=== PATIENT | male | born 1990 | race Caucasian/White ===

== ENCOUNTER 2020-06-22 14:28 | Emergency (ER) | payer OTHER, SELFPAY ==
[2020-06-22 14:42] VITALS: BP 123/84; PULSE 63; RESP 20; TEMP 36.3; O2SAT 100
--- NOTE | 2020-06-22 14:54 | ED.MALEGU ---
HPI - Male Genitourinary General Chief complaint: Urogenital-Male Stated complaint: STD test Time Seen by Provider: 06/22/20 14:45 Source: patient and RN notes reviewed Mode of arrival: ambulatory Limitations: no limitations History of Present Illness HPI Narrative: 30-year-old male presents concern for possible STD exposure. Reports unprotected sex with a new partner. Reports red, slightly itchy skin on his penis. Denies penile discharge, dysuria. MD Complaint: possible STD exposure Related Data Allergies Allergy/AdvReac Type Severity Reaction Status Date / Time No Known Allergies Allergy Unverified 03/29/14 10:32 Review of Systems Review of Systems: Narrative: CONSTITUTIONAL: Denies malaise, chills, sweats, or fever. CARDIOVASCULAR: Denies chest pain, palpitations, or edema. RESPIRATORY: Denies cough or dyspnea. GASTROINTESTINAL: Denies abdominal pain, nausea, vomiting, diarrhea, bloody, or mucous stools. GENITOURINARY: Denies dysuria or hematuria. SKIN: Reports red itchy skin on his penis MUSCULOSKELETAL: Denies myalgia. All systems reviewed & are unremarkable except as noted in HPI and below PMFSH Comments At time of signature, agree with nursing past medical, surgical, social and family history. There is no relevant family history pertinent to the presenting complaint Exam Narrative: Exam Narrative: GENERAL: Well-appearing, well-nourished, and in no acute distress. HEAD: Normocephalic, atraumatic. EYES: PERRLA, conjunctivae clear ENT: Mucous membranes moist. NECK: Supple. CHEST: No respiratory distress. Speaks in full sentences. HEART: Regular rate and rhythm. SKIN: Warm, dry. 3 cm in diameter patch of mildly excoriated, pink skin on the shaft of the penis NEURO: Alert and oriented x3. PSYCH: Normal mood and affect : Male genitals images: 1. Patch of pink mildly excoriated skin Course Course Emergency Course: Patient is aware of diagnosis, understands and agrees to treatment plan. Anticipatory guidance given. Patient agrees to follow-up as directed and is aware of reasons to seek care at the emergency department. Portions of this record may have been created with voice recognition software Vital Signs Vital signs: Vital Signs Temperature 97.4 F L 06/22/20 14:42 Pulse Rate 63 06/22/20 14:42 Respiratory Rate 20 06/22/20 14:42 Blood Pressure 123/84 06/22/20 14:42 Pulse Oximetry 100 06/22/20 14:42 Temperature 97.4 F L 06/22/20 14:42 Pulse Rate 63 06/22/20 14:42 Respiratory Rate 20 06/22/20 14:42 Blood Pressure 123/84 06/22/20 14:42 Pulse Oximetry 100 06/22/20 14:42 Reviewed. Pt has been instructed to follow up with his primary care provider within the next week regarding his elevated blood pressure today. MDM - Male Genitourinary MDM Narrative Medical decision making narrative: Exam findings show no acute concerns or changes; patient is non-toxic appearing and is in no distress. Patient is appropriate for outpatient treatment and follow-up. Differential Diagnosis Differential diagnosis: Likely urinary tract infection, urethritis, genital herpes simplex and other (STD) Critical Care Time Critical Care Time Critical Care Time: No Discharge Plan Discharge Clinical Impression: Possible exposure to STD, Rash Patient Disposition: Home, Self-Care Condition: Stable Instructions: Antibiotic Form, Sexually Transmitted Diseases (ED) Additional Instructions: You have been tested and treated for potential Gonorrhea and Chlamydia today. A prescription has been called into her pharmacy for treatment for trichomoniasis. You must pick this up and take it in order to be considered treated for trichomoniasis. You will receive a phone call in 2-3 days with the results of today's testing. It is very important that you avoid unprotected intercourse for 7 days and until your partner(s) have been treated. Please encourage your partner(s) to seek testing and treatm
[2020-06-22] MEDS: LIDOCAINE HCL 1% LOCAL INJ 20 ML VIAL IM (15:03)
[2020-06-22] MEDS: AZITHROMYCIN 250 MG TABLET 1000 MG PO (15:03)
[2020-06-22] MEDS: cefTRIAXone 250 MG VIAL IM (15:04)
== END 2020-06-22 15:30 | disposition home or self-care (01) ==
PROVIDERS: Emergency Provider Nurse Practitioner
DX: N48.89 Other specified disorders of penis (principal)
CPT/HCPCS: 87491; 87591; 87661; 96372; 99203; A9270; G0463; J0696

== ENCOUNTER 2020-11-20 16:00 | Emergency (ER) | payer OTHER, SELFPAY ==
[2020-11-20 16:03] VITALS: BP 130/85; PULSE 69; RESP 16; TEMP 36.2; O2SAT 98
[2020-11-20 16:10] VITALS: BP 130/85; PULSE 69; RESP 16; TEMP 36.2; O2SAT 98
--- NOTE | 2020-11-20 17:01 | ED.MALEGU ---
HPI - Male Genitourinary General Chief complaint: Urogenital-Male Stated complaint: std Time Seen by Provider: 11/20/20 16:40 Source: patient and RN notes reviewed Mode of arrival: ambulatory Limitations: no limitations History of Present Illness HPI Narrative: Patient presents today requesting STD testing. His girlfriend told him yesterday that she was diagnosed with chlamydia. She has been treated. Patient denies any symptoms. States he has 1 female partner. He does not wear any condoms. After she told him she was positive for chlamydia, she did admit that she has been sexually active with other partners. MD Complaint: possible STD exposure Related Data Allergies Allergy/AdvReac Type Severity Reaction Status Date / Time acetaminophen [From Percocet] AdvReac Unknown Verified 11/20/20 16:09 oxycodone [From Percocet] AdvReac Unknown Verified 11/20/20 16:09 Review of Systems Review of Systems: Narrative: CONSTITUTIONAL: Denies body aches, fever, chills, or sweats. EYES: Denies visual changes, redness, or discharge. ENT: Denies rhinorrhea, congestion, sore throat, or otalgia. CARDIOVASCULAR: Denies chest pain, palpitations, or edema. RESPIRATORY: Denies cough or dyspnea. GASTROINTESTINAL: Denies abdominal pain, nausea, vomiting, or diarrhea. GENITOURINARY: Denies dysuria or hematuria. SKIN: Denies rash, itching, or wounds. MUSCULOSKELETAL: Denies back pain, joint pain, or myalgia. NEUROLOGIC: Denies headache, numbness, tingling, or weakness. PSYCH: Denies depression or anxiety. PMFSH Social History Social History Smoking status: Current every day smoker Tobacco type: cigarettes Gender identity (if verbalized by the patient): Male Comments At time of signature, I have reviewed and agree with nursing past medical, surgical, social and family history unless otherwise noted. Please see nursing chart for further information. There is no relevant family history pertinent to the presenting complaint Exam Narrative: Exam Narrative: GENERAL: Well-appearing, well-nourished, and in no acute distress. HEAD: Normocephalic, atraumatic. EYES: EOMI. No redness or drainage. Conjunctivae normal. ENT: Mucous membranes pink and moist. NECK: Normal AROM. CHEST: No respiratory distress. : deferred. MUSCULOSKELETAL: No bony tenderness. EXTREMITIES: Normal range of motion. No edema. SKIN: Warm, dry, no rash. Capillary refill normal. Normal skin turgor. NEURO: No focal deficits. Alert and oriented x3. Gait steady. PSYCH: Normal affect. No signs of depression or anxiety. Course Vital Signs Vital signs: Vital Signs Temperature 97.1 F L 11/20/20 16:03 Pulse Rate 69 11/20/20 16:03 Respiratory Rate 16 11/20/20 16:03 Blood Pressure 130/85 11/20/20 16:03 Pulse Oximetry 98 11/20/20 16:03 Temperature 97.1 F L 11/20/20 16:10 Pulse Rate 69 11/20/20 16:10 Respiratory Rate 16 11/20/20 16:10 Blood Pressure 130/85 11/20/20 16:10 Pulse Oximetry 98 11/20/20 16:10 Reviewed. Pt has been instructed to follow up with his PCP regarding his elevated blood pressure today. MDM - Male Genitourinary Differential Diagnosis Differential diagnosis: Likely urinary tract infection, urethritis and other (Gonorrhea, chlamydia, trichomonas) Lab Data Labs: Urine Characteristics Clear Critical Care Time Critical Care Time Critical Care Time: No Discharge Plan Discharge Clinical Impression: Concern about sexually transmitted disease in male without diagnosis Patient Disposition: Home, Self-Care Condition: Stable Instructions: Antibiotic Form, Chlamydia (ED), Gonorrhea (ED), Trichomoniasis (ED) Additional Instructions: You have been tested and treated for gonorrhea, chlamydia, and trichomonas. You will be notified by telephone of these test results. You need to abstain from
[2020-11-20] MEDS: AZITHROMYCIN 250 MG TABLET 1000 MG PO (17:10)
[2020-11-20] MEDS: LIDOCAINE HCL 1% LOCAL INJ 20 ML VIAL IM (17:12)
[2020-11-20] MEDS: cefTRIAXone 250 MG VIAL 500 MG IM (17:12)
== END 2020-11-20 17:28 | disposition home or self-care (01) ==
PROVIDERS: Emergency Provider Nurse Practitioner
DX: Z20.822 Contact with and (suspected) exposure to COVID-19 (principal); F17.210 Nicotine dependence, cigarettes, uncomplicated
CPT/HCPCS: 87491; 87591; 87661; 96372; 99213; A9270; G0463; J0696

== ENCOUNTER 2021-03-08 09:03 | Emergency (ER) | payer OTHER, SELFPAY ==
[2021-03-08 09:24] VITALS: BP 129/73; RESP 49; TEMP 36.6; O2SAT 100
--- NOTE | 2021-03-08 10:02 | ED.LOWEXIN ---
HPI - Extremity Injury (Lower) General Chief Complaint: Extremity Injury, Lower Stated Complaint: right leg pain and selling on back of knee Source: patient Mode of arrival: ambulatory Limitations: no limitations History of Present Illness HPI Narrative: Patient is a 30 year old male who presents complaining of right leg pain. He reports pain x 2 weeks. Patient reports that he stand all day from work. He denies injury. Reports pain increases with extension. He reports tenderness to posterior knee and states feels like a knot . He denies taking [id number] medications for pain he denies all other complaints at this time. complaint: other (Posterior knee pain) Related Data Home Medications Medication Instructions Recorded Confirmed No Home Medications 03/08/21 03/08/21 Allergies Allergy/AdvReac Type Severity Reaction Status Date / Time acetaminophen [From Percocet] AdvReac Rash Verified 03/08/21 09:50 oxycodone [From Percocet] AdvReac Rash Verified 03/08/21 09:50 Review of Systems Review of Systems: Narrative: CONSTITUTIONAL: Denies fever, chills, or sweats. EYES: Denies visual changes, redness, or discharge. ENT: Denies rhinorrhea, congestion, sore throat, or otalgia. CARDIOVASCULAR: Denies chest pain, palpitations, or edema. RESPIRATORY: Denies cough or dyspnea. GASTROINTESTINAL: Denies abdominal pain, nausea, vomiting, or diarrhea. GENITOURINARY: Denies dysuria or hematuria. SKIN: Denies rash or itching. MUSCULOSKELETAL: Right knee pain NEUROLOGIC: Denies headache, numbness, dizziness, or weakness. PSYCHIATRIC: Denies anxiety or depression. PMFSH Social History Social History Smoking status: Current every day smoker Tobacco type: cigarettes Gender identity (if verbalized by the patient): Male Comments At the time of signature, I have reviewed and agree with nursing past medical, surgical, social, and family history unless otherwise noted. Please see nursing chart for further information. There is no relevant family history pertinent to the presenting complaint. Exam Narrative: Exam Narrative: GENERAL: Well-appearing, well-nourished, and in no acute distress. HEAD: Normocephalic, atraumatic. EYES: EOMI. No redness or drainage. ENT: Mucous membranes pink and moist. CHEST: No respiratory distress. Clear to auscultation. HEART: Regular rate and rhythm EXTREMITIES: Normal range of motion. No edema. Tenderness with palpation to right posterior knee, area of edema noted, no warmth or erythema SKIN: Warm, dry, no rash. NEURO: No focal deficits. Alert and oriented x3. Gait steady. PSYCH: Normal affect. No signs of depression or anxiety. Course Vital Signs Vital signs: Vital Signs Temperature 36.6 C 03/08/21 09:24 Respiratory Rate 49 H 03/08/21 09:24 Blood Pressure 129/73 03/08/21 09:24 Pulse Oximetry 100 03/08/21 09:24 Temperature 36.6 C 03/08/21 09:24 Respiratory Rate 49 H 03/08/21 09:24 Blood Pressure 129/73 03/08/21 09:24 Pulse Oximetry 100 03/08/21 09:24 Transfer Transfered to: [facility] Transportation: Other (Private Vehicle) Transfer rationale: Higher Level of Care Accepting physician: Dr. Sweet Transfer comments: Patient to go by private vehicle at this time. MDM - Extremity Injury (Lower) MDM Narrative Medical decision making narrative: Discussed with patient the need for further evaluation along with potential lab work and imaging. Patient agrees with plan of care. Patient to be transported to [facility] for further evaluation at this time Differential Diagnosis Differential diagnosis: Likely ankle sprain and strain, acute internal derangement of knee, fracture of femur and other (DVT, Mack's cyst) Critical Care Time Critical Care Time Critical Care Time: No Discharge Plan Discharge Clinical Impression: Posterior right knee pain Patient Disposition: Acut
== END 2021-03-08 10:15 | disposition short-term general hospital (02) ==
LOC: EXPBETH 09:05
PROVIDERS: Emergency Provider Nurse Practitioner
DX: M25.561 Pain in right knee (principal); F17.210 Nicotine dependence, cigarettes, uncomplicated
CPT/HCPCS: 99212; G0463

== ENCOUNTER 2021-04-01 12:58 | Emergency (ER) | payer OTHER, SELFPAY ==
--- NOTE | 2021-04-01 13:05 | ED.URI ---
HPI - URI/Sore Throat General Chief Complaint: Upper Respiratory Infection Stated Complaint: Sore and swollen Throat Time Seen by Provider: 04/01/21 13:05 Source: patient and RN notes reviewed History of Present Illness HPI Narrative: Patient is a 30-year-old male who presents the urgent care with complaints of a sore throat that started last night. Patient has had positive contact with his girlfriend. Patient states that he has had fever and chills but denies of any nausea, vomiting, abdominal pain or other upper respiratory symptoms. Patient denies of any Covid contact. States that he is also been seen in orthopedics for continual right knee swelling. Orthopedic had placed him on Keflex and Vicodin as well as a medication for arthritis. Patient states that he stopped the Keflex approximately 3 days ago. States that the orthopedics suggested he obtain a test for gonorrhea or referral to a civil engineering drafter. Patient has not received a rheumatology referral and has not been tested for gonorrhea. Patient is not symptomatic for gonorrhea or other STDs. Denies of any pain with urination or sex. Denies of any penile discharge. Denies of any known contact to STDs. No other acute complaints. No acute distress noted. Patient had a plan of care. Some parts of this dictation were generated by voice recognition software and may contain typographical and/or grammatical inaccuracies. Related Data Home Medications Medication Instructions Recorded Confirmed naproxen 500 mg PO BID 04/01/21 04/01/21 Allergies Allergy/AdvReac Type Severity Reaction Status Date / Time acetaminophen [From Percocet] AdvReac Rash Verified 03/08/21 09:50 oxycodone [From Percocet] AdvReac Rash Verified 03/08/21 09:50 Review of Systems Review of Systems: Narrative: CONSTITUTIONAL: Denies fever, chills, or sweats. EYES: Denies visual changes, redness, or discharge. ENT: Denies rhinorrhea, congestion. Reports of painful swallowing, swollen tonsils and sore throat CARDIOVASCULAR: Denies chest pain, palpitations, or edema. RESPIRATORY: Denies cough or dyspnea. GASTROINTESTINAL: Denies abdominal pain, nausea, vomiting, or diarrhea. GENITOURINARY: Denies dysuria or hematuria. Requesting STD testing SKIN: Denies rash or itching. MUSCULOSKELETAL: Denies back pain, joint pain, or myalgia. NEUROLOGIC: Denies headache, numbness, or weakness. All other systems reviewed are negative, except as documented in HPI. PMFSH Social History Social History Smoking status: Current every day smoker Tobacco type: cigarettes Gender identity (if verbalized by the patient): Male Comments At the time of my signature, I reviewed and agree with the nursing past medical, surgical, social, and family history. There is no relevant family history pertinent to the patient complaint. Exam Narrative: Exam Narrative: GENERAL: This is a well-nourished, well-developed patient, in no apparent distress. HEAD: normocephalic, atraumatic. EYES: PERRL. Sclera clear/white. Vision is grossly intact. EARS: External ears normal, auditory canals clear and without drainage, TMs normal without perforation. Hearing grossly intact. NOSE: External nose normal with no obvious nasal discharge, nares without redness, no rhinorrhea. THROAT: Mucous membranes moist. Moderate erythema noted posterior oropharynx with mild bilateral tonsillar swelling and erythema with bilateral notable exudate and moderate postnasal drainage NECK: Neck supple, non-tender bilateral submandibular (larger on the right) lymphadenopathy CARDIOVASCULAR: Regular rate and rhythm without murmurs, gallops, or rubs. RESPIRATORY: Clear to auscultation. Breath sounds equal bilaterally. No wheezes, rales, or rhonchi. SKIN: warm, intact with no suspicious lesions or rash, good texture and turgor. NEURO: awake, alert, and oriented to person, place and time. There were no obvious focal neurolo
[2021-04-01 13:07] VITALS: BP 136/73; PULSE 89; RESP 20; TEMP 38; O2SAT 100
== END 2021-04-01 13:31 | disposition home or self-care (01) ==
PROVIDERS: Emergency Provider Nurse Practitioner Family
DX: J02.0 Streptococcal pharyngitis (principal); Z20.2 Contact with and (suspected) exposure to infections with a predominantly sexual mode of transmission; F17.210 Nicotine dependence, cigarettes, uncomplicated
CPT/HCPCS: 87491; 87591; 87661; 87880; 99213; G0463

== ENCOUNTER 2021-11-01 11:19 | Emergency (ER) | payer OTHER, SELFPAY ==
[2021-11-01 11:28] VITALS: BP 122/92; PULSE 71; RESP 20; TEMP 37.1; O2SAT 99
--- NOTE | 2021-11-01 12:36 | ED.URI ---
HPI - URI/Sore Throat General Chief Complaint: Upper Respiratory Infection Stated Complaint: sore throat Time Seen by Provider: 11/01/21 12:14 Source: patient and RN notes reviewed Mode of arrival: ambulatory Limitations: no limitations History of Present Illness HPI Narrative: Patient presents today complaining of a scratchy throat, hot flashes, headache x2 days with rhinorrhea. Denies cough, congestion. Currently rates his pain 2/10 and has tried no medication for symptoms prior to arrival. Both of his children present today with him with similar symptoms. Reports exposure to strep throat. MD elicited complaint: sore throat Related Data Home Medications Medication Instructions Recorded Confirmed gabapentin 100 mg capsule 100 mg PO DAILY 09/29/21 11/01/21 Allergies Allergy/AdvReac Type Severity Reaction Status Date / Time acetaminophen [From Percocet] AdvReac Rash Verified 11/01/21 11:22 oxycodone [From Percocet] AdvReac Rash Verified 11/01/21 11:22 Review of Systems Review of Systems: CONSTITUTIONAL: Denies body aches, fever, chills. + Sweats EYES: Denies visual changes, redness, or discharge. ENT: Denies rhinorrhea, congestion, or otalgia.+ Sore throat CARDIOVASCULAR: Denies chest pain, palpitations, or edema. RESPIRATORY: Denies cough or dyspnea. GASTROINTESTINAL: Denies abdominal pain, nausea, vomiting, or diarrhea. GENITOURINARY: Denies dysuria or hematuria. SKIN: Denies rash, itching, or wounds. MUSCULOSKELETAL: Denies back pain, joint pain, or myalgia. NEUROLOGIC: Denies numbness, tingling, or weakness.+ Headache PSYCH: Denies depression or anxiety. 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 Please see nursing chart for further information. There is no relevant family history pertinent to the presenting complaint Exam Narrative: GENERAL: Well-appearing, well-nourished, and in no acute distress. HEAD: Normocephalic, atraumatic. EYES: EOMI. No redness or drainage. Conjunctivae normal. ENT: Mucous membranes pink and moist. Nares clear. No rhinorrhea. TMs normal bilaterally. Throat normal with small amount of white postnasal drainage. Uvula midline. NECK: Normal AROM. Supple. No lymphadenopathy. CHEST: No respiratory distress. Clear to auscultation. HEART: Regular rate and rhythm. No murmur appreciated. Normal peripheral pulses. EXTREMITIES: Normal range of motion. No edema. SKIN: Warm, dry, no rash. Capillary refill normal. Normal skin turgor. NEURO: No focal deficits. Alert and oriented x3. Gait steady. PSYCH: Normal affect. No signs of depression or anxiety. Course Course Level of Care: Express Care Visit Vital Signs Vital signs: Vital Signs Temperature 98.7 F 11/01/21 11:28 Pulse Rate 71 11/01/21 11:28 Respiratory Rate 20 11/01/21 11:28 Blood Pressure 122/92 H 11/01/21 11:28 Pulse Oximetry 99 11/01/21 11:28 Temperature 98.7 F 11/01/21 11:28 Pulse Rate 71 11/01/21 11:28 Respiratory Rate 20 11/01/21 11:28 Blood Pressure 122/92 H 11/01/21 11:28 Pulse Oximetry 99 11/01/21 11:28 Reviewed. Pt has been instructed to follow up with his PCP regarding his elev
== END 2021-11-01 12:45 | disposition home or self-care (01) ==
PROVIDERS: Emergency Provider Nurse Practitioner
DX: J06.9 Acute upper respiratory infection, unspecified (principal); Z87.891 Personal history of nicotine dependence
CPT/HCPCS: 87081; 87880; 99213; G0463

== ENCOUNTER 2021-12-01 12:28 | Emergency (ER) | payer OTHER, SELFPAY ==
[2021-12-01 12:30] VITALS: BP 122/107; PULSE 67; RESP 14; TEMP 36.9; O2SAT 100
--- NOTE | 2021-12-01 13:39 | ED.BACK ---
HPI - Back Pain/Injury General Chief Complaint: Back Pain/Injury Stated Complaint: right foot flare up from herniated disk Time Seen by Provider: 12/01/21 13:29 Source: patient and RN notes reviewed Mode of arrival: ambulatory Limitations: no limitations History of Present Illness HPI Narrative: Patient presents today complaining of pain and tingling to his right buttock radiating to his right foot x2 weeks. Patient states symptoms started after he was given a steroid injection in his right hip for chronic low back pain and herniated disc at his PCPs office. Denies numbness or tingling in the genitals, loss of bowel or bladder control. He currently rates his pain 7/10 and has been taking ibuprofen without relief. He has an appointment with his PCP in 3 days. States he has run out of muscle relaxer at home that he normally takes for pain. MD elicited complaint: back pain Related Data Home Medications Medication Instructions Recorded Confirmed gabapentin 100 mg capsule 100 mg PO TID 09/29/21 11/01/21 Allergies Allergy/AdvReac Type Severity Reaction Status Date / Time acetaminophen [From Percocet] AdvReac Rash Verified 12/01/21 12:42 oxycodone [From Percocet] AdvReac Rash Verified 12/01/21 12:42 Review of Systems Review of Systems: CONSTITUTIONAL: Denies body aches, fever, chills, or sweats. EYES: Denies visual changes, redness, or discharge. ENT: Denies rhinorrhea, congestion, sore throat, or otalgia. CARDIOVASCULAR: Denies chest pain, palpitations, or edema. RESPIRATORY: Denies cough or dyspnea. GASTROINTESTINAL: Denies abdominal pain, nausea, vomiting, or diarrhea. GENITOURINARY: Denies dysuria or hematuria. SKIN: Denies rash, itching, or wounds. MUSCULOSKELETAL: Denies back pain, joint pain. + Right leg pain NEUROLOGIC: Denies headache, numbness, or weakness.+ Tingling PSYCH: Denies depression or anxiety. 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 Please see nursing chart for further information. There is no relevant family history pertinent to the presenting complaint Exam Narrative: GENERAL: Well-appearing, well-nourished, and in no acute distress. HEAD: Normocephalic, atraumatic. EYES: EOMI. No redness or drainage. Conjunctivae normal. ENT: Mucous membranes pink and moist. NECK: Normal AROM. CHEST: No respiratory distress. MUSCULOSKELETAL: No bony tenderness of the spine. EXTREMITIES: Right leg with normal range of motion. Mild tenderness starting at the buttock and extending down the posterior leg. Distal sensation intact. Saddle sensation intact. Capillary refill normal. Dorsiflexion and plantarflexion equal and strong against resistance. SKIN: Warm, dry, no rash. Capillary refill normal. Normal skin turgor. NEURO: No focal deficits. Alert and oriented x3. Gait steady. PSYCH: Normal affect. No signs of depression or anxiety. Course Course Level of Care: Express Care Visit Vital Signs Vital signs: Vital Signs Temperature 98.5 F 12/01/21 12:30 Pulse Rate 67 12/01/21 12:30 Respiratory Rate 14 12/01/21 12:30 Blood Pressure 122/107 H 12/01/21 12:30 Pulse Oximetry 100 12/01/21
[2021-12-01 13:45] VITALS: BP 151/87
== END 2021-12-01 13:47 | disposition home or self-care (01) ==
PROVIDERS: Emergency Provider Nurse Practitioner
DX: M54.16 Radiculopathy, lumbar region (principal); Z87.891 Personal history of nicotine dependence
CPT/HCPCS: 99213; G0463

== ENCOUNTER → 2021-12-27 00:11 | Outpatient (CLI) | payer OTHER, SELFPAY ==
[2021-12-27 14:14] LABS: SARS-CoV-2 RNA PCR Negative
== END ==
PROVIDERS: Visit Provider Surgery
DX: Z01.812 Encounter for preprocedural laboratory examination (principal); Z20.822 Contact with and (suspected) exposure to COVID-19
CPT/HCPCS: C9803; U0003; U0005

== ENCOUNTER 2021-12-29 00:51 | Day surgery (SDC) | payer OTHER, SELFPAY ==
[2021-12-23 18:07] VITALS: BMI 25.0
--- NOTE | 2021-12-23 18:17 | PC.NURSE ---
Report to the Outpatient Waiting Room, entrance under the green pavilion located off [facility], at time ___1000____ on date __12/29/2021 . OR Time: ____1200____. - You and your visitor will be asked a series of questions to screen for COVID 19 for your protection. - A mask is required within the hospital. Preoperative COVID Testing Requirements: No COVID Test needed if: (proof is required; if not received patient will have Rapid Test prior to entry) - Patient has received COVID Vaccine at least 14 days prior to procedure date or - Patient has positive COVID test result within last 90 days of surgery date. COVID Test needed if above criteria is not met If not COVID vaccinated a COVID test must be conducted within 72 hours of surgery and patient is asked to isolate self from time of testing until procedure. You will go to the [email or web address] for your COVID testing. [facility] is located at the corner of [address] [facility]. 12/26/2021 @ 0915 You will only be called if COVID results are positive and your surgeon may reschedule your elective surgery date. Patients may have clear liquids (water, carbonated beverages, clear teas, apple juice) until 3 hours prior to surgery with a maximum of 20 ounces. - No food from midnight until time of surgery - Infants may have breast milk until 4 hours before surgery, formula 6 hours prior to surgery. - Children will be allowed to drink immediately following surgery. If applicable, please bring a bottle or sippy cup to assist with drinking. Juice, water, soda, and popsicles are readily available. For infants on formula, please bring formula the day of surgery. Pacifiers are allowed. Take the following medications with a SIP of water the morning of surgery: __GABAPENTIN, PREDNISONE Medications to discontinue per physician Date to take last dose Please no make-up, nail greek, hairspray, perfume, deodorant, or body powder the day of surgery. No jewelry (including any body piercings) or valuables the day of surgery, leave them at home. Please take a shower or bath the night before, or the morning of, surgery with an antibacterial soap. Wear comfortable, loose fitting clothing. Children are encouraged to wear pajamas. - Jewelry must be removed prior to entering the operating room. Rings and piercings that are not removed may be cut off. - The hospital will not accept responsibility for valuables. - Please leave all valuables, including medications, at home the day of surgery. If you are going home after surgery, a licensed flatbed driver must drive you home. - NO public transportation without another adult. - We recommend that an adult stay with you for 24 hours following discharge. - We also recommend that you do not drive, make important decision, drink alcoholic beverages, or take any drugs that were not prescribed by your health care provider for at least 24 hours after your discharge time. For Pediatric surgeries, we recommend two adults accompany the child home (only one inside the building at this time). One visitor will be allowed to accompany the patient into the hospital. Patients visitor will be instructed to remain with patient at all times or leave the building. We will allow the visitor to come back to the postoperative area when patient is ready. Follow any additional instructions given to you from your surgeon. Telephone instructions given to ___patient and asked if any additional questions and then verbalized understanding. Patient advised to call surgeon office or pre surgery nurse liaison [phone] if any additional questions.
[2021-12-29] VITALS (7 sets, daily range): BP systolic 113–135; BP diastolic 64–86; PULSE 50–85; RESP 12–18; TEMP 36.1–36.5; O2SAT 99–100
[2021-12-29] MEDS: LACTATED RINGERS 1,000 ML 30 ML IV CONT (11:30)
--- NOTE | 2021-12-29 11:30 | WPDANESEPPF ---
Anes - Initial Pre Proc Eval Procedure: Operation Date: 12/29/21 12:00 Proposed Procedures p Rectal Examination Under Anesthesia Lateral Internal Sphincterotomy - Cosme Roca DO Date/Time: 12/29/21 11:30 Surgeon: Cosme Roca DO Pre Op Diagnosis: anal fissure Patient Data Age: 31 Gender: M Height: 1.85 m Weight: 86.18 kg Allergies Allergy/AdvReac Type Severity Reaction Status Date / Time oxycodone [From Percocet] AdvReac Mild Rash Verified 12/23/21 18:03 Home Medications Medication Instructions Recorded Confirmed Type gabapentin 100 mg capsule 100 mg PO TID 09/29/21 12/23/21 History cyclobenzaprine 10 mg PO TID PRN #20 tablet 12/01/21 12/23/21 Rx naproxen sodium 550 mg PO BID PRN #20 tablet 12/01/21 12/23/21 Rx prednisone 20 mg PO BID 12/23/21 12/23/21 History Patient hx anesthesia problems: none Family hx anesthesia problems: none Results Review: All pre-operative results and documents have been reviewed as part of the pre-operative evaluation. 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[employer] Gender identity (if verbalized by the patient): Male Spiritual care concerns: No Anes - Eval Final PreProcedure Day of Procedure 12/29/21 11:30 Patient weight: overweight Heart: regular rate and rhythm Lungs: clear to auscultation and normal air movement Airway: Mallampati scale class II Neurological: alert and oriented Last oral intake: >/= 8 hours ASA classification: II Emergent: no Anesthetic plan: proceed Anesthesia type and monitoring: general ETT and standard monitoring Results Review: All pre-operative results and documents have been reviewed as part of the pre-operative evaluation. Informed Consent: The patient's anesthetic plan and its attendant risks and benefits were discussed with the patient/family/POA. Questions were solicited and answers provided to the satisfaction of the patient/family/POA.
--- NOTE | 2021-12-29 11:34 | WPDHPUPDATE1 ---
History and Physical Update Update Date/Time: 12/29/21 11:34 History and Physical has been reviewed, including an updated exam of the patient. There are NO changes in the patient's condition. Risks, benefits, and alternatives have been discussed and questions answered. Patient agrees to proceed with procedure.
[2021-12-29] MEDS: KETOROLAC 15 MG/ML VIAL (*BKC) IV PUSH (11:42)
[2021-12-29] MEDS: ACETAMINOPHEN 500 MG TABLET 1000 MG PO (11:42)
[2021-12-29] MEDS: ceFAZolin 2 GM/D5W 50 ML 2 GM/50 ML BAG IVPB (11:52)
--- NOTE | 2021-12-29 12:33 | W.PM.PROC2 ---
Procedure Note - Detailed Date of Procedure 12/29/21 Pre-op Diagnosis anal fissure Post-op Diagnosis Same (Chronic anterior midline anal fissure) Procedure Performed Rectal exam under anesthesia with left lateral internal sphincterotomy Surgeon Cosme Roca, DO Anesthesia General and Local (Exparel) Indications This is a 31-year-old man who presented with a chronic anal fissure that he has not improved over the past several months. He was noted to have pain with bowel movements and an anterior midline anal fissure. He was treated with topical nifedipine ointment with no significant success. Discussions were made with the patient about treatment options and decision was made to proceed with rectal exam under anesthesia with lateral internal sphincterotomy. Findings Rectal exam under anesthesia was performed. The patient had evidence of a very shallow superficial anterior midline anal fissure. Did not appear to be any deep wounds or any active bleeding. A left lateral internal sphincterotomy was performed. Other abnormalities were noted within the rectum or anus. Description of Procedure Procedure as well as risks, benefits, and alternatives were discussed with the patient. Consent was obtained and placed in chart prior to procedure. Patient was brought back to surgical suite. He was placed supine on operating table. Time-out was done to confirm patient and procedure. He was then intubated by anesthesia department. He was then repositioned into prone silva-knife position. His perirectal area was prepped and draped in sterile fashion using Betadine prep. Digital rectal exam was initially performed. A Hill-Jauregui anoscope was then inserted in the anorectal canal was carefully inspected. Exparel was then infiltrated locally around the perianal tissue. A Fansler anoscope was then inserted and the anal rectal canal was carefully visualized. A 2 cm incision was made in the left lateral and a derm directly over the internal sphincter muscle fibers. The internal sphincter muscle fibers were then carefully isolated with a hemostat and transected using electrocautery. The sphincterotomy was incised far enough internally to allow for adequate relaxation of the sphincter muscles up to the level of the anal fissure. Hemostasis was achieved with electrocautery. Anoderm was then closed using 2-0 chromic simple interrupted sutures. One final inspection was made around the no other abnormalities were noted. Area was irrigated with sterile saline. Xeroform gauze was then applied over the incision followed by fluff gauze ABD pads and mesh underwear. The patient was then awakened from anesthesia, extubated, and transferred to recovery. Estimated Blood Loss 5 Complications No immediate complications Condition Stable Disposition Same day
== END 2021-12-29 14:10 | disposition home or self-care (01) ==
PROVIDERS: Visit Provider Surgery
PROC: (CPT 46080; principal; 2021-12-29 12:00)
DX: K60.1 Chronic anal fissure (principal); F12.90 Cannabis use, unspecified, uncomplicated; Z87.891 Personal history of nicotine dependence
CPT/HCPCS: 46080; A9270; C9290; C9803; J0330; J0690; J1100; J1885; J2250; J2405; J2704; J3010; J7120; U0003; U0005

== ENCOUNTER 2022-05-22 09:24 | Emergency (ER) | payer OTHER, SELFPAY ==
[2022-05-22 09:28] VITALS: BP 152/89; PULSE 76; RESP 16; TEMP 36.1; O2SAT 100
--- NOTE | 2022-05-22 09:28 | ED.URI ---
HPI - URI/Sore Throat General Chief Complaint: Upper Respiratory Infection Stated Complaint: nausea fever runny nose diarhhea Time Seen by Provider: 05/22/22 09:28 Source: patient Mode of arrival: ambulatory Limitations: no limitations History of Present Illness HPI Narrative: Mr. Crump is a 32-year-old male patient presenting to the clinic today with complaints of fever, headache, sinus pressure, nausea, and runny nose has been going on over 1 week. He also reports he has had some runny stool. Unknown how high his temperature has been as he does not have a thermometer at home however he has been having chills and sweats. He reports that he has had exposure to someone with strep. No known exposure to anyone with COVID. Related Data Home Medications Medication Instructions Recorded Confirmed gabapentin 100 mg capsule 100 mg PO TID 09/29/21 01/16/22 Allergies Allergy/AdvReac Type Severity Reaction Status Date / Time oxycodone [From Percocet] AdvReac Mild Rash Verified 12/29/21 11:56 Review of Systems Review of Systems: Pertinent positives per HPI. Patient denies any rash, headache, visual changes, dizziness, cough, sore throat, shortness of breath, chest pain, palpitations, vomiting, constipation, abdominal pain, or any urinary issues. [facility] Past Medical History Medical History Back pain Surgical History Surgical History H/O rectal sphincterotomy 12/29/21 History of appendectomy Family History Family History Father Hypertension Mother Diabetes mellitus Heart disease Social History Social History Smoking status: Former smoker Tobacco type: cigarettes Smoking end date: 12/23/14 Alcohol intake: former Substance use: current Substance use type: marijuana Other substance usage details: DAILY Additional occupation/education comments: [employer]: [employer] Gender identity (if verbalized by the patient): Male Spiritual care concerns: No Comments At the time of my signature, I reviewed and agree with the nursing past medical, surgical, social, and family history. There is no relevant family history pertinent to the patient complaint. Exam Narrative: General: Well-developed, well nourished, in no apparent distress Head: Normocephalic, atraumatic Eyes: Pupils equally round and reactive to light bilaterally, EOM intact, sclera and conjunctive clear, no discharge, lids normal Ears: TMs intact ,dull, and red ear canals clear, no drainage, grossly hearing normal. Nose: Nares patent, yellow nasal discharge, moderate to severe inflammation, frontal and maxillary sinus tenderness. Mouth: Oropharynx without lesions or masses, good dentition, MMM. Oropharynx red, postnasal drip Neck: Supple, trachea midline, no enlargement of anterior or posterior cervical nodes, no thyroid masses or goiter palpable. Cardio: Regular rate and rhythm, s1 and s2 normal, no murmur appreciated. Resp: Clear to auscultation bilaterally anteriorly and posteriorly, no rhonchi, rales, wheezing or rubs Course Course Emergency Course: Portions of this record may have been created with voice recognition software. Level of Care: Express Care Visit Vital Signs Vital signs: Vital signs reviewed MDM - URI/Sore Throat MDM Narrative Medical decision making narrative: At the time of visit patient is resting comfortably on the exam table. I suspect the patient has acute bacterial rhinosinusitis. Also he has had strep exposure. I will treat him with a course of Augmentin. Supportive measures were discussed with the patient he voiced understanding of discharge instructions and agrees to treatment plan. Differential Diagnosis Differential diagnosis: Likely upper respiratory infection, o
== END 2022-05-22 09:56 | disposition home or self-care (01) ==
PROVIDERS: Emergency Provider Nurse Practitioner Family
DX: J01.80 Other acute sinusitis (principal); B96.89 Other specified bacterial agents as the cause of diseases classified elsewhere; Z20.818 Contact with and (suspected) exposure to other bacterial communicable diseases; Z87.891 Personal history of nicotine dependence
CPT/HCPCS: 99213; G0463

== ENCOUNTER 2022-07-13 11:44 | Emergency (ER) | payer OTHER, SELFPAY ==
[2022-07-13 11:48] VITALS: BP 147/88; PULSE 95; RESP 14; TEMP 36.9; O2SAT 100
--- NOTE | 2022-07-13 11:55 | ED.URI ---
HPI - URI/Sore Throat General Chief Complaint: Upper Respiratory Infection Stated Complaint: sore throat fever aches Source: patient and RN notes reviewed Mode of arrival: ambulatory Limitations: no limitations History of Present Illness HPI Narrative: 32-year-old male presents with concern for sore throat, swollen lymph nodes, body aches, fever, postnasal drainage. Reports symptoms started yesterday. Reports he has taken Tylenol and ibuprofen. He denies trouble swallowing, drooling. MD elicited complaint: sore throat Related Data Allergies Allergy/AdvReac Type Severity Reaction Status Date / Time oxycodone [From Percocet] AdvReac Mild Rash Verified 07/13/22 11:57 Review of Systems Review of Systems: CONSTITUTIONAL: Reports malaise, fever. EYES: Denies visual changes, redness, or discharge. ENT: Denies rhinorrhea, congestion, sinus pain, otalgia. Reports postnasal drainage and sore throat. Reports swollen lymph nodes CARDIOVASCULAR: Denies chest pain, palpitations, or edema. RESPIRATORY: Denies cough. Denies dyspnea. GASTROINTESTINAL: Denies abdominal pain, nausea, vomiting, diarrhea SKIN: Denies rash or itching. MUSCULOSKELETAL: Reports myalgia. NEUROLOGIC: Denies headache. 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 There is no relevant family history pertinent to the presenting complaint Exam Narrative: GENERAL: Well-appearing, well-nourished, and in no acute distress. HEAD: Normocephalic EYES: PERRLA, conjunctivae clear ENT: Nares clear, clear discharge. Mucous membranes moist. TM pearly kinsey with sharp light reflex bilaterally; no tragal tenderness. Oropharynx erythematous without lesions. Tonsils enlarged with exudate, worse on the right, no drooling, no hoarseness, no trismus, uvula midline. NECK: Supple. Bilateral tender cervical lymphadenopathy CHEST: Clear to auscultation, breath sounds equal. No wheezing, rhonchi, rales, or stridor. No respiratory distress, speaks in full sentences. HEART: Regular rate and rhythm. No murmur heard. SKIN: Warm, dry, no rash. NEURO: Alert and oriented x3. PSYCH: Normal mood and affect Course Course Emergency Course: Patient is aware of diagnosis, understands and agrees to treatment plan. Anticipatory guidance given. Patient agrees to follow-up as directed and is aware of reasons to seek care at the emergency department. Portions of this record may have been created with voice recognition software Level of Care: Express Care Visit Vital Signs Vital signs: Vital Signs Temperature 98.5 F 07/13/22 11:48 Pulse Rate 95 07/13/22 11:48 Respiratory Rate 14 07/13/22 11:48 Blood Pressure 147/88 H 07/13/22 11:48 Pulse Oximetry 100 07/13/22 11:48 Oxygen Delivery Room Air 07/13/22 11:48 Temperature 98.5 F 07/13/22 11:48 Pulse Rate 95 07/13/22 11:48 Respiratory Rate 14 07/13/22 11:48 Blood Pressure 147/88 H 07/13/22 11:48 Pulse Oximetry 100 07/13/22 1
== END 2022-07-13 12:46 | disposition home or self-care (01) ==
PROVIDERS: Emergency Provider Nurse Practitioner
DX: J03.90 Acute tonsillitis, unspecified (principal); Z87.891 Personal history of nicotine dependence
CPT/HCPCS: 87081; 87804; 87880; 99213; G0463

== ENCOUNTER 2023-05-21 10:45 | Emergency (ER) | payer MEDICAID, SELFPAY ==
[2023-05-21 11:07] VITALS: BP 132/86; PULSE 60; RESP 18; TEMP 36.2; O2SAT 100
--- NOTE | 2023-05-21 11:19 | ED.URI ---
HPI - URI/Sore Throat General Chief Complaint: Upper Respiratory Infection Stated Complaint: strep test Time Seen by Provider: 05/21/23 11:10 Source: patient Mode of arrival: ambulatory Limitations: no limitations History of Present Illness HPI Narrative: Carlos is a 33-year-old male patient presenting to the clinic today with complaints sore throat and fatigue X2 days. He reports that his daughter is sick at home and she tested positive for strep. He would like a strep screen completed today. MD elicited complaint: sore throat and nasal congestion Related Data Home Medications Medication Instructions Recorded Confirmed aspirin 81 mg tablet,delayed 81 mg PO DAILY 05/21/23 05/21/23 release (Adult Low Dose Aspirin) omeprazole 40 mg capsule,delayed 40 mg PO DAILY 05/21/23 05/21/23 release Allergies Allergy/AdvReac Type Severity Reaction Status Date / Time oxycodone [From Percocet] AdvReac Mild Rash Verified 05/21/23 11:18 Review of Systems Review of Systems: Pertinent positives per HPI. Patient denies any fever, chills, rash, headache, visual changes, dizziness, cough, shortness of breath, chest pain, palpitations, nausea, vomiting, diarrhea, constipation, abdominal pain, or any urinary issues. [facility] Past Medical History Medical History Back pain Surgical History Surgical History H/O rectal sphincterotomy 12/29/21 History of appendectomy Family History Family History Father Hypertension Mother Diabetes mellitus Heart disease Social History Social History Smoking status: Former smoker Tobacco type: cigarettes Smoking end date: 12/23/14 Alcohol intake: former Substance use: current Substance use type: marijuana Other substance usage details: DAILY Living arrangements: alone Occupation/Education: occupation Additional occupation/education comments: [employer] Person: [employer] Gender identity (if verbalized by the patient): Male Spiritual care concerns: No Comments At the time of my signature, I reviewed and agree with the nursing past medical, surgical, social, and family history. There is no relevant family history pertinent to the patient complaint. Exam Narrative: General: Well-developed, well nourished, in no apparent distress Head: Normocephalic, atraumatic Eyes: Pupils equally round and reactive to light bilaterally, EOM intact, sclera and conjunctive clear, no discharge, lids normal Ears: TMs intact and clear, ear canals clear, no drainage, grossly hearing normal. Nose: Nares patent, no discharge, no inflammation, no sinus tenderness. Mouth: Oral pharynx red with bilateral tonsillar enlargement without lesions or masses, good dentition, MMM. Neck: Supple, trachea midline, enlargement of anterior cervical nodes, no thyroid masses or goiter palpable. Cardio: Regular rate and rhythm, s1 and s2 normal, no murmur appreciated. Resp: Clear to auscultation bilaterally, no rhonchi, rales, wheezing or rubs Course Course Emergency Course: Portions of this record may have been created with voice recognition software. Level of Care: Express Care Visit Vital Signs Vital signs: Vital Signs Oxygen Delivery Room Air 05/21/23 10:57 Temperature 36.2 C L 05/21/23 11:07 Pulse Rate 60 05/21/23 11:07 Respiratory Rate 18 05/21/23 11:07 Blood Pressure 132/86 05/21/23 11:07 Pulse Oximetry 100 05/21/23 11:07 Oxygen Delivery Room Air 05/21/23 11:07 Vital signs reviewed MDM - URI/Sore Throat MDM Narrative Medical decision making narrative: At the time of visit patient is resting on the exam table. Strep screen was negative however patient's son tested positive for strep in the clinic today. Patient
== END 2023-05-21 11:30 | disposition home or self-care (01) ==
PROVIDERS: Emergency Provider Nurse Practitioner Family
DX: J02.9 Acute pharyngitis, unspecified (principal); Z79.82 Long term (current) use of aspirin; Z87.891 Personal history of nicotine dependence
CPT/HCPCS: 87081; 87880; 99213; G0463

== ENCOUNTER 2023-08-11 11:53 | Emergency (ER) | payer OTHER, SELFPAY ==
[2023-08-11 12:00] VITALS: BP 130/83; PULSE 97; RESP 16; TEMP 36.6; O2SAT 97
--- NOTE | 2023-08-11 12:16 | ED.URI ---
HPI - URI/Sore Throat General Chief Complaint: Upper Respiratory Infection Stated Complaint: throat/nausea Time Seen by Provider: 08/11/23 12:13 Source: patient and RN notes reviewed Mode of arrival: ambulatory Limitations: no limitations History of Present Illness HPI Narrative: 33-year-old male presents with concern for 1 day history of headache, sore throat. Reports 1 episode of vomiting this morning. He reports his daughter has similar symptoms. He has not taken any medications for. He denies fever, chills body aches sweats. MD elicited complaint: cough and sore throat Related Data Home Medications Medication Instructions Recorded Confirmed aspirin 81 mg tablet,delayed 81 mg PO DAILY 05/21/23 05/21/23 release (Adult Low Dose Aspirin) omeprazole 40 mg capsule,delayed 40 mg PO DAILY 05/21/23 05/21/23 release cyclobenzaprine 10 mg tablet mg 08/11/23 losartan 25 mg tablet mg 08/11/23 Allergies Allergy/AdvReac Type Severity Reaction Status Date / Time oxycodone [From Percocet] AdvReac Mild Rash Verified 05/21/23 11:18 Review of Systems Review of Systems: CONSTITUTIONAL: Denies malaise, chills, sweats, or fever. EYES: Denies visual changes, redness, or discharge. ENT: Denies rhinorrhea, congestion, sinus pain, otalgia. Reports sore throat. CARDIOVASCULAR: Denies chest pain, palpitations, or edema. RESPIRATORY: Denies cough. Denies dyspnea. GASTROINTESTINAL: Denies abdominal pain, nausea, diarrhea. Reports an episode of SKIN: Denies rash or itching. MUSCULOSKELETAL: Denies myalgia. NEUROLOGIC: Denies headache. 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 There is no relevant family history pertinent to the presenting complaint Exam Narrative: GENERAL: Well-appearing, well-nourished, and in no acute distress. HEAD: Normocephalic EYES: PERRLA, conjunctivae clear ENT: Nares clear, turbinates edematous and erythematous, clear discharge. Mucous membranes moist. TM pearly kinsey with dull light reflex bilaterally; no tragal tenderness. Oropharynx not erythematous without lesions. Tonsils not enlarged and without exudate, no drooling, no hoarseness, no trismus, uvula midline. NECK: Supple. No lymphadenopathy CHEST: Clear to auscultation, breath sounds equal. No wheezing, rhonchi, rales, or stridor. No respiratory distress, speaks in full sentences. HEART: Regular rate and rhythm. No murmur heard. SKIN: Warm, dry, no rash. NEURO: Alert and oriented x3. PSYCH: Normal mood and affect Course Course Emergency Course: Patient is aware of diagnosis, understands and agrees to treatment plan. Anticipatory guidance given. Patient agrees to follow-up as directed and is aware of reasons to seek care at the emergency department. Portions of this record may have been created with voice recognition software Level of Care: Express Care Visit Vital Sig
== END 2023-08-11 12:36 | disposition home or self-care (01) ==
PROVIDERS: Emergency Provider Nurse Practitioner
DX: J02.9 Acute pharyngitis, unspecified (principal); J06.9 Acute upper respiratory infection, unspecified; Z87.891 Personal history of nicotine dependence; Z79.82 Long term (current) use of aspirin
CPT/HCPCS: 87081; 87880; 99213; G0463

== ENCOUNTER 2023-09-19 16:37 | Emergency (ER) | payer OTHER, SELFPAY ==
[2023-09-19 16:42] VITALS: BP 151/91; PULSE 103; RESP 20; TEMP 37.1; O2SAT 100
--- NOTE | 2023-09-19 16:57 | ED.URI ---
HPI - URI/Sore Throat General Chief Complaint: Upper Respiratory Infection Stated Complaint: sinus prob,cough,ear inf Time Seen by Provider: 09/19/23 16:57 Source: patient, RN notes reviewed and old records reviewed Mode of arrival: ambulatory Limitations: no limitations History of Present Illness HPI Narrative: 33 year old male presents to [facility] with complaints of 2 week duration of sinus congestion, headache, yellow sinus drainage with cough for the past 2-3 days which has been frequent and ears hurting and also some chills. Patient reports that he used OTC ear drops and some nose drops, NyQuil and DayQuil and had some left over steroids he took. Patient reports no shortness of breath, respirations even and nonlabored, no tachypnea noted, SAO2 100% on room air. MD elicited complaint: cough, sore throat, rhinorrhea, nasal congestion, sinus pain and other (ear pressure ) Onset (ago): week(s) (2 weeks symptoms and increase cough) Pain scale (0-10): 5 Able to tolerate fluids by mouth: Yes Treatments prior to arrival: cold medicine and other (nose drops, OTC ear drops, DayQuil and NyQuil, and some left over steroids he had.) Related Data Home Medications Medication Instructions Recorded Confirmed aspirin 81 mg tablet,delayed 81 mg PO DAILY 05/21/23 09/19/23 release (Adult Low Dose Aspirin) omeprazole 40 mg capsule,delayed 40 mg PO DAILY 05/21/23 09/19/23 release cyclobenzaprine 10 mg tablet 10 mg PO Q8H PRN Pain 08/11/23 09/19/23 losartan 25 mg tablet 25 mg PO DAILY 08/11/23 09/19/23 Allergies Allergy/AdvReac Type Severity Reaction Status Date / Time oxycodone [From Percocet] AdvReac Mild Rash Verified 09/19/23 16:43 Review of Systems Review of Systems: CONSTITUTIONAL: Reports malaise, positive chills, no sweats, or known fever. EYES: Denies visual changes, redness, or discharge. ENT: Reports rhinorrhea, congestion, sinus pain, pressure to ears and sore throat. CARDIOVASCULAR: Denies chest pain, palpitations, or edema. RESPIRATORY: Reports cough.? Denies dyspnea. GASTROINTESTINAL: Denies abdominal pain, nausea, vomiting, diarrhea SKIN: Denies rash or itching. MUSCULOSKELETAL: Denies myalgia. NEUROLOGIC: Reports headache. 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 There is no relevant family history pertinent to the presenting complaint Exam Narrative: GENERAL: Well-appearing, well-nourished, and in no acute distress. HEAD: Normocephalic EYES: PERRLA, conjunctivae clear ENT: Nares clear, turbinates edematous and erythematous, clear to yellowish discharge. Mucous membranes moist. TM pearly kinsey with dull light reflex bilaterally; no tragal tenderness. Oropharynx erythematous without lesions. Tonsils not enlarged and without exudate, no drooling, no hoarseness, no trismus, uvula midline.post nasal drainage NECK: Supple.
== END 2023-09-19 17:20 | disposition home or self-care (01) ==
PROVIDERS: Emergency Provider Registered Nurse
DX: J32.9 Chronic sinusitis, unspecified (principal); R05.9 Cough, unspecified; Z87.891 Personal history of nicotine dependence; Z79.82 Long term (current) use of aspirin
CPT/HCPCS: 99213; G0463

== ENCOUNTER 2023-09-28 16:11 | Emergency (ER) | payer OTHER, SELFPAY ==
--- NOTE | ~2023-09-28 | XR_ITS ---
EXAMINATION: XR chest 2V DATE: 09/28/2023 17:16 INDICATION: One week of shortness of breath, cough and wheezing TECHNIQUE: PA and lateral views of the chest were obtained. COMPARISON: None FINDINGS: The lungs are clear with no focal airspace opacities, pulmonary edema, pleural effusion or pneumothor ax. The cardiomediastinal silhouette is normal. Visualized bones and soft tissues are unremarkable. IMPRESSION: 1. Normal chest radiograph. Reviewed, dictated and finalized at location A. SUPERINTENDENT IMPRESSION: 1. Normal chest radiograph.
[2023-09-28 16:18] VITALS: BP 135/93; PULSE 93; RESP 20; TEMP 37.2; O2SAT 98
--- NOTE | 2023-09-28 17:00 | ED.URI ---
HPI - URI/Sore Throat General Chief Complaint: Upper Respiratory Infection Stated Complaint: sinus/chest wheezing/sob Time Seen by Provider: 09/28/23 16:48 Source: patient, RN notes reviewed and old records reviewed Mode of arrival: ambulatory Limitations: no limitations History of Present Illness HPI Narrative: 33 year old male presents to express care with complaints of continued cough, some shortness of breath and some wheezing. Patient reports that he is still taking his antibiotics as prescribed since the and completed the prednisone as ordered. Patient reports that his cough is frequent, his ears feel clogged, has headache, yellow mucous expectorated with sweats for the past 4-5 days..Patient states that he is using a netti pot and taking Mucinex. MD elicited complaint: cough (wheezing, SOB,ears feel clogged), rhinorrhea, nasal congestion and other (headache) Onset (ago): day(s) (10) Pain scale (0-10): 5 Able to tolerate fluids by mouth: Yes Related Data Home Medications Medication Instructions Recorded Confirmed aspirin 81 mg tablet,delayed 81 mg PO DAILY 05/21/23 09/28/23 release (Adult Low Dose Aspirin) omeprazole 40 mg capsule,delayed 40 mg PO DAILY 05/21/23 09/28/23 release losartan 25 mg tablet 25 mg PO DAILY 08/11/23 09/28/23 Allergies Allergy/AdvReac Type Severity Reaction Status Date / Time oxycodone [From Percocet] AdvReac Mild Rash Verified 09/28/23 16:35 Review of Systems Review of Systems: CONSTITUTIONAL: Reports malaise, chills, sweats, no known fever. EYES: Denies visual changes, redness, or discharge. ENT: Reports rhinorrhea, congestion, sinus pain, otalgia and no sore throat. CARDIOVASCULAR: Denies chest pain, palpitations, or edema. RESPIRATORY: Reports cough.? Reports some dyspnea with exertion. GASTROINTESTINAL: Denies abdominal pain, nausea, vomiting, diarrhea SKIN: Denies rash or itching. MUSCULOSKELETAL: Denies myalgia. NEUROLOGIC:Reports headache. All systems reviewed & are unremarkable except as noted in HPI and below PMFSH Past Medical History Medical History (Updated 09/29/23 @ 13:39 by Re Mckeon NP) AVM (arteriovenous malformation) Back pain Hypertension Surgical History Surgical History H/O rectal sphincterotomy 12/29/21 History of appendectomy Family History Family History Father Hypertension Mother Diabetes mellitus Heart disease Social History Social History Smoking status: Former smoker Tobacco type: cigarettes Smoking end date: 12/23/14 Alcohol intake: former Substance use: current Substance use type: marijuana Other substance usage details: DAILY Living arrangements: alone Occupation/Education: occupation 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 There is no relevant family history pertinent to the presenting complaint Exam Narrative: GENERAL: Well-appearing, well-nourished, and in no acute distress. HEAD: Normocephalic EYES: PERRLA, conjunctivae clear ENT: Nares clear, turbinates edematous and erythematous, clear discharge. Mucous membranes moist. TM pearly kinsey with dull light reflex bilaterally; no tragal tenderness. Oropharynx erythematous without lesions. Tonsils not enlarged and without exudate, no drooling, no hoarseness, no trismus, uvula midline. NECK: Supple. No lymphadenopathy CHEST: Clear to auscultation, breath sounds equal. No wheezing, rhonchi, rales, or stridor. No respiratory distress, speaks in full sentences.cough,harsh cough SAO2 98% on room air, no tachypnea noted. SKIN: Warm,
== END 2023-09-28 17:40 | disposition home or self-care (01) ==
PROVIDERS: Emergency Provider Registered Nurse
DX: J06.9 Acute upper respiratory infection, unspecified (principal); Z87.891 Personal history of nicotine dependence; F12.90 Cannabis use, unspecified, uncomplicated; I10 Essential (primary) hypertension
CPT/HCPCS: 71046; 99213; G0463

== ENCOUNTER 2024-09-04 10:04 | Emergency (ER) | payer OTHER, SELFPAY ==
[2024-09-04 10:12] VITALS: BP 137/87; PULSE 91; RESP 16; TEMP 36.3; O2SAT 99
--- NOTE | 2024-09-04 11:09 | ED.URI ---
HPI - URI/Sore Throat General Chief Complaint: Upper Respiratory Infection Stated Complaint: fever/aches/throat Time Seen by Provider: 09/04/24 10:50 Source: patient, RN notes reviewed and old records reviewed Mode of arrival: ambulatory Limitations: no limitations History of Present Illness HPI Narrative: 34-year-old male who presents to [facility] with complaints of 3 day history body aches, fevers, nasal congestion with productive cough.He reports daughter had strep 1 week ago. He states that cough is worse at night, states ribs sore from coughing. Patient reports that he has been taking Mucinex, DayQuil and NyQuil for his symptoms. Patient reports highest fever noted 101F. MD elicited complaint: cough and sore throat Onset (ago): day(s) (3) Consistency: constant Able to tolerate fluids by mouth: Yes Related Data Home Medications ?Medication ?Instructions ?Recorded ?Confirmed ?Last Taken ?Type aspirin 81 mg tablet,delayed 81 mg PO DAILY 05/21/23 09/04/24 Unknown History release (Adult Low Dose Aspirin) omeprazole 40 mg capsule,delayed 40 mg PO DAILY 05/21/23 09/04/24 Unknown History release losartan 25 mg tablet 25 mg PO DAILY 08/11/23 09/04/24 Unknown History Allergies Allergy/AdvReac Type Severity Reaction Status Date / Time oxycodone (From Percocet) AdvReac Mild Rash Verified 09/28/23 16:35 Review of Systems Review of Systems: CONSTITUTIONAL:reports malaise, chills, sweats, or fever. EYES: Denies visual changes, redness, or discharge. ENT: Reports rhinorrhea, congestion, sinus pain, no otalgia and no sore throat. CARDIOVASCULAR: Denies chest pain, palpitations, or edema. RESPIRATORY: Reports cough.? Denies dyspnea. GASTROINTESTINAL: Denies abdominal pain, nausea, vomiting, diarrhea SKIN: Denies rash or itching. MUSCULOSKELETAL: reports myalgia. NEUROLOGIC: reports headache. All systems reviewed & are unremarkable except as noted in HPI and below PMFSH Past Medical History Medical History (Updated 09/07/24 @ 16:35 by Re Mckeon NP) Chronic neck and back pain Hypertension AVM (arteriovenous malformation) Back pain Surgical History Surgical History H/O rectal sphincterotomy 12/29/21 History of appendectomy Family History Family History Father Hypertension Mother Diabetes mellitus Heart disease Social History Social History Smoking status: Former smoker Tobacco type: cigarettes Smoking end date: 12/23/14 Alcohol intake: former Substance use: current Substance use type: marijuana Other substance usage details: DAILY Living arrangements: alone Occupation/Education: occupation 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 There is no relevant family history pertinent to the presenting complaint Exam Narrative: GENERAL: Well-appearing, well-nourished, and in no acute distress. HEAD: Normocephalic EYES: PERRLA, conjunctivae clear ENT: Nares clear, turbinates edematous and erythematous, clear discharge. Mucous membranes moist. TM pearly kinesy with dull light reflex bilaterally; no tragal tenderness. Oropharynx erythematous without lesions. Tonsils not enlarged and without exudate, no drooling, no hoarseness, no trismus, uvula midline.post nasal drainage NECK: Supple. No lymphadenopathy CHEST: Clear to auscultation, breath sounds equal. No wheezing, rhonchi, rales, or stridor. No respiratory distress, speaks in full sentences.cough SAO2 99% on room air HEART: Regular rate and rhythm. No murmur heard. SKIN: Warm, dry, no rash. NEURO: Alert and oriented x3. PSYCH: Normal mood and affect Course Course Emergency Course: Patient is aware of diagnosis, understands and agrees to treatment plan.? Anticipatory guidance given.? Patient agrees to follow-up as directed and is aware of reasons to seek care at the emergency department. Portions of this record may have been created with voice recognition software Level of Care: Express Care Visit Vital Signs Vital signs: Vital Signs Temperature 36.3 C L 09/04/24 10:12 Pulse Rate 91 09/04/24 10:12 Respiratory Rate 16 09/04/24 10:12 Blood Pressure 137/87 09/04/24 10:12 Pulse Oximetry 99 09/04/24 10:12 Oxygen Delivery Room Air 09/04/24 10:12 Temperature 36.3 C L 09/04/24 10:12 Pulse Rate 91 09/04/24 10:12 Respiratory Rate 16 09/04/24 10:12 Blood Pressure 137/87 09/04/24 10:12 Pulse Oximetry 99 09/04/24 10:12 Oxygen Delivery Room Air 09/04/24 10:12 Reviewed MDM - URI/Sore Throat MDM Narrative Medical decision making narrative: Differential diagnosis considered: Gardner virus, strep pharyngitis, allergic rhinitis, upper respiratory tract infection, sinusitis, rhinosinusitis, nasopharyngitis. viral pharyngitis, otitis media, otitis externa, pneumonia, bronchitis, viral cough syndrome, viral syndrome, and influenza.? Exam findings show no acute concerns or changes; patient is non-toxic appearing and is in no distress.? Patient is appropriate for outpatient treatment and follow-up. Differential Diagnosis Differential diagnosis: Likely upper respiratory infection, sinusitis, viral infection, influenza and other (covid, cough and congestion) Medical Records Attestation: I reviewed the patient's medical records. Lab Data Attestation: I reviewed the patient's lab results. Lab results narrative: strep screen negative, culture sent, Influenza A negative, Influenza B negative, COVID antigen negative Labs: Lab Results 09/04/24 09/04/24 Range/Units 11:12 11:20 POC Influenza A Ag Negative (Negative) POC Influenza B Ag Negative (Negative) POC SARS CoV-2 Ag Negative (Negative) POC Grp A Strep Screen Negative (Negative) Critical Care Time Critical Care Time Critical Care Time: No Discharge Plan Discharge Clinical Impression: Upper respiratory infection with cough and congestion Patient Disposition: Home, Self-Care Condition: Stable Instructions: Antibiotic Form, Prednisone (By mouth), Upper Respiratory Infection (ED) Additional Instructions: Increase fluids especially juices and water [id number] cough and cold medicine of your choice for your symptoms Zyrtec Claritin or Noemi daily Tylenol or ibuprofen for any fever pain Continue your inhaler/nebulizer as directed Steroids as directed--take with food heat to the face 20-30 minutes 4-6 times a day for pain Salt water gargles, throat lozenges or throat sprays as desired Antibiotic as directed--finished the medication If your symptoms persist, change or worsen significantly before you can contact your personal physician then please, without delay, go to the emergency department for further evaluation. Follow-up with PCP in 7-10 days or sooner if needed Follow up with PCP soon in regards to your blood pressure which is elevated above threshold for referral. Blood pressure above 120/80 may indicate pre-hypertension. Patient Language: Mongolian Prescriptions: New amoxicillin 500 mg capsule 500 mg PO Q8H Qty: 21 0RF prednisone 50 mg tablet 50 mg PO DAILY Qty: 5 0RF No Action omeprazole 40 mg capsule,delayed release(DR/EC) 40 mg PO DAILY aspirin [Adult Low Dose Aspirin] 81 mg Tablet,Delayed Release (Dr/Ec) 81 mg PO DAILY losartan 25 mg tablet 25 mg PO DAILY albuterol sulfate 90 mcg/actuation HFA aerosol inhaler 2 puff inhalation QID PRN (Reason: shortness of breath or wheezing) Qty: 8.5 0RF Rx Instructions: For acute cough and shortness of breath dextromethorphan-guaifenesin [Delsym Cough-Chest Congest DM] 5-100 mg/5 mL liquid 10 ml PO Q4-8H PRN (Reason: cough) Qty: 300 0RF Follow-up/Referrals: Des,MD Be [Primary Care Provider] - Time of Disposition: 11:37 Quality [place] Coma Scale Eyes: Open Verbal: Oriented and Alert Motor: Follows Commands [place] Coma Total Score: 15
[2024-09-04 11:13] LABS: EDCOVIDSCREEN Negative (Negative); EDINFLUASCREEN Negative (Negative); EDINFLUBSCREEN Negative (Negative)
[2024-09-04 11:22] LABS: EDSTREPNEGPOS1 Negative (Negative)
== END 2024-09-04 11:45 | disposition home or self-care (01) ==
PROVIDERS: Emergency Provider Registered Nurse; PCP Family Medicine
DX: J06.9 Acute upper respiratory infection, unspecified (principal); R05.9 Cough, unspecified; Z20.822 Contact with and (suspected) exposure to COVID-19; Z87.891 Personal history of nicotine dependence; I10 Essential (primary) hypertension; Z79.82 Long term (current) use of aspirin
CPT/HCPCS: 87081; 87426; 87804; 87880; 99213; G0463

== ENCOUNTER 2025-06-24 18:44 | Emergency (ER) | payer OTHER, SELFPAY ==
--- OUTSIDE RECORDS SUMMARY | 2021-12-04 10:00 | XMS_ITS | Continuity of Care Document ---
Author Organization [facility] Address 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 Role Phone Job PT, ELIZABETHT, Ghassan Unavailable Sherie vailable Procedures Procedure Date PT Evaluation Moderate Complexity Neuromuscular Re-Ed Therapeutic Exercise Manual Therapy Therapeutic Activities Neuromuscular Re-Ed Therapeutic Exercise Manual Therapy Hot or Cold Pack Therapeutic Activities Neuromuscular Re-Ed Therapeutic Exercise Manual Therapy Therapeutic Activities Neuromuscular Re-Ed Therapeutic Exercise Manual Therapy Therapeutic Activities Neuromuscular Re-Ed Therapeutic Exercise Manual Therapy Therapeutic Activities Neuromuscular Re-Ed Therapeutic Exercise Manual Therapy Hot or Cold Pack PT Evaluation Moderate Complexity Therapeutic Activities Neuromuscular Re-Ed Manual Therapy Advance Directives Directive Yes / No Effective Date File Name No Information Encounters Encounter Description Practice Location Reason(s) For Visit Diagnoses Date Provider Providers Copied on Encounter [facility], [address], [place], [place], [id number], [place] tel:[phone] [place] No Information DorantesThomas Ferrell. [address], [address], [place], [place], [facility], . tel:[phone] Referring Provider: Stefan Carrera, [address] [place] [address], [address]. tel:[phone] [facility] [address], [id number], [place] tel:[phone] [place] No Information Kulkarni Rozina. . Referring Provider: Stefan Carrera, [address] [place] [address], [address]. tel:[phone] [facility] [address], [id number], tel:[phone] [place] No Information Modglin Anthony. . Referring Provider: Stefan Carrera, [address] [place] [address], [address]. tel:[phone] [facility] [address], [id number], [place] tel:[phone] [place] No Information Modglin Anthony. . Referring Provider: Stefan Carrera, [address] [place] [address], [address]. tel:[phone] [facility] [address], [id number], [place] tel:[phone] [place] No Information Modglin Anthony. . Referring Provider: Stefan Carrera, [address] [place] [address], [address]. tel:[phone] [facility] [address], [id number], tel:[phone] [place] No Information Dirk Dockery. . Referring Provider: Stefan Carrera, [address] [place] [address], [address]. tel:[phone] [facility], [address], [place], [place], [id number], tel:[phone] [place] No Information Kojoshabnamchapito CarterNahed. . Referring Provider: Stefan Carrera, [facility], [place], [address]. tel:[phone] Family History Family Member Type Diagnosis Age At Onset No Information Payers Payer name Insurance type Covered constitution party ID Shadi hunt(willis Mehta [id number] Social History Type Description Quantity Date Captured Comments Alcohol Use Details Unknown Caffeine Use Details Unknown Tobacco Use Status Current non-smoker Smoking Status Never smoker Non-Smoking Tobacco Use Details : No Details Available : No Details Available Sex Male Vital Signs Date / Time: Height Weight BMI Pulse Rate Blood Pressure Temperature Respiratory Rate Body Surface Area Head Circumference Head Circ. Percentile Wt./[place]. Percentile BMI percentile Pulse Ox Inhaled Ox 3:36 PM 73.00 in 83.910 kg (185.00 lbs) 24.4 1 kg/m eter (2) 2.08 meter(2) Chief Complaint And Reason For Visit No Information Reason For Referral Reason For Referral No Information History Of Present Illness Encounter Date Complaint History Of Prese nt Illness No Information Functional Status Date Functional Assessmen t No Information Instructions Date Instruction Additional Infor mation No Information Assessments Type Assessment Date No Information Patient Care Teams Name Effective Dates (start - stop) Status Members No Information
[2025-06-24 18:46] VITALS: BP 143/101; PULSE 65; RESP 20; TEMP 36.7; O2SAT 100
--- OUTSIDE RECORDS SUMMARY | 2025-06-24 18:46 | XMS_ITS | Clinical Summary ---
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 06/25/2022 Active meloxicam (MOBIC) 7.5 mg tablet Take 7.5 mg by mouth daily. Active Active Problems Problem Noted Date Diagnosed Date Adjustment disorder with mixed anxiety and depre ssed mood 08/11/2022 Elevated BP without diagnosis of hypertension Other chronic pain 06/23/2022 Muscle spasm of right lower extremity 03/08/2021 Piriformis syndrome of right side 03/08/2021 Acute appendicitis 12/25/2015 Overview (11/19/2021): Acute appendicitis Immunizations Immunization Administration Dates Next Due (ADACEL/BOOSTRIX)(10 YR UP) TDAP VACCINE, 0.5ML, IM 11/29/2018 Family History Medical History Relation Name Comments No Known Problems Brother 1 No Known Problems Brother 2 No Known Problems Daughter Heart defect Father Ulcers Father Sudden Maternal Grandfather No Known Problems Maternal Grandmother Diabetes Mother Colon Cancer Paternal Grandfather No Known Problems Paternal Grandmother No Known Problems Sister 1 No Known Problems Sister 2 No Known Problems Son Relation Name Status Comments Brother 1 Alive Brother 2 Alive Daughter Alive Father Alive Maternal Grandfather Maternal Grandmother Alive Mother Alive Paternal Grandfather Alive Paternal Grandmother Alive Sister 1 Alive Sister 2 Alive Son Alive Social History Tobacco Use Types Packs/Day Years Used Date Smoking Tobacco: Former Smokeless Tobacco: Never Tobacco Cessation:Counseling Given: Not Answered Alcohol Use Standard Drinks/Week Comments No 0 (1 standard drink = 0.6 oz pur e alcohol) Sex and Gender Information Value Date Recorded Sex Assigned at Not on file 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 Gender Identity Not on file Sexual Orientation Not on file Last Filed Vital Signs Vital Sign Reading Time Taken Comments Blood Pressure 144/86 06/22/2022 1:51 PM CDT Pulse 83 06/22/2022 1:01 PM CDT Temperature 36.6 C (97.8 F) 06/22/2022 1:01 PM CDT Respiratory Rate 18 06/22/2022 1:01 PM CDT Oxygen Saturation 98% 06/22/2022 1:01 PM CDT Inhaled Oxygen Concentration - - Weight 88.5 kg (195 lb) 06/22/2022 1:01 PM CDT Height 185.4 cm (6' 1) 06/22/2022 1:01 PM CDT Body Mass Index 25.73 06/22/2022 1:01 PM CDT Plan of Treatment Health Maintenance Due Date Last Done Comments HEPATITIS B VACCINES (1 of 3 - 19+ 3-dose series) 05/07 HPV VACCINES (1 - 3-dose SCDM series) 2018 INFLUENZA VACCINE (#1) 2025 DTAP/TDAP/TD VACCINES (2 - Td or Tdap) 11/29/2028 Insurance [employer] OPEN ACCESS * Guarantor: [email or web address] Account Type Relation to Patient Date of Phone Billing Address Corporate Employer ATTN: ADNIELA BARRETO [id number] [address]
--- OUTSIDE RECORDS SUMMARY | 2025-06-24 18:46 | XMS_ITS | Clinical Summary ---
Author Organization [facility] Address [address] [place] [address] Phone Care Team Providers Care Occupational Health And Safety Manager Name Role Phone Be Nunes MD Primary Care Provider Allergies Active Allergy Reactions Criticality Noted Date Comments Oxycodone Rash 04/01/2019 Oxycodone-Acetaminophen Rash 08/12/2022 Medications diazePAM (VALIUM) 5 MG Tablet Take 1 Tab by mouth every 8 hours as needed for Other (dizziness). 12 Tab 9 Active meclizine (ANTIVERT) 25 MG Tablet Take 1 Tab by mouth 3 times daily as needed for Dizziness. 20 Tab 9 Active Additional Information Patient not taking.Reported on 12/17/2023 dicyclomine (BENTYL) 20 MG Tablet Take 1 Tab by mouth every 6 hours. 30 Tab 0 Active Additional Information Patient not taking.Reported on 12/17/2023 ondansetron (ZOFRAN) 4 MG Tablet Take 1 Tablet by mouth every 8 hours as needed for Nausea - 1st line. 10 Tablet 1 Active Additional Information Patient not taking.Reported on 12/17/2023 naproxen (NAPROSYN) 500 MG Tablet Take 1 Tablet by mouth 2 times daily (with meals). 14 Tablet 1 Active Additional Information Patient not taking.Reported on 12/17/2023 gabapentin (NEURONTIN) 100 MG Capsule TAKE ONE CAPSULE BY MOUTH THREE TIMES DAILY 1 Active metoclopramide (REGLAN) 10 MG Tablet Take 1 Tablet by mouth 4 times daily as needed for Nausea - 1st line. 10 Tablet 2 Active Additional Information Patient not taking.Reported on 12/17/2023 meloxicam (MOBIC) 7.5 MG TabletIndicatio ns:hold 7 days prior to 08/19/[address] Carrera Take 7.5 mg by mouth daily. Indications: hold 7 days prior to 08/19/[address] Carrera Active traMADol (ULTRAM) 50 MG Tablet Take 50 mg by mouth every 6 hours as needed. Active cyclobenzaprine (FLEXERIL) 10 MG Tablet Take 10 mg by mouth 3 times daily as needed. Active naproxen sodium (ANAPROX) 220 MG TabletIndicatio ns:hold 7 days prior to 08/19/[address] Carrera Take 220 mg by mouth 2 times daily (with meals). Indications: hold 7 days prior to 08/19/[address] Carrera Active omeprazole (PriLOSEC) 40 MG CAPSULE DELAYED RELEASE Take 40 mg by mouth every morning. Active LOSARTAN POTASSIUM PO Take by mouth every morning. Active aspirin EC 81 MG Tablet Delayed Response Take 81 mg by mouth daily. INSTRUCTED TO HOLD FOR 7 DAYS PRIOR TO SURGERY ON 12/29/2023 Active diclofenac (CATAFLAM) 50 MG Tablet Take 50 mg by mouth 2 times daily. INSTRUCTED TO HOLD FOR 7 DAYS PRIOR TO SURGERY ON 12/29/2023 Active Multiple Vitamin (MULTI-VITAMIN PO) Take 1 Tablet by mouth daily. INSTRUCTED TO HOLD FOR 3 DAYS PRIOR TO SURGERY ON 12/29/2023 Active Active Problems Problem Noted Date Diagnosed Date Carpal tunnel syndrome, right 12/29/2023 Posterior dislocation of right shoulder joint Herniated lumbar intervertebral disc 08/19/2022 Family History Medical History Relation Name Comments Heart Attack Father Ulcerative Colitis Father Diabetes Mother No Known Problems Sister Relation Name Status Comments Father Alive Mother Alive Sister Alive Social History Tobacco Use Types Packs/Day Years Used Date Smoking Tobacco: Former Cigarettes 0.3 6 2 2012 Smokeless Tobacco: Never Tobacco Cessation:Counseling Given: Not Answered Alcohol Use Standard Drinks/Week Comments Not Currently 0 (1 standard drink = 0.6 oz pure alcohol) TEQUILA & BEER ON WEEKENDS ([place]) [facility] Utilities Answer Date Recorded In the past 12 months has th e electric, gas, oil, or water company threatened to shut off services in your home? Yes 01/28/2024 Social Connection and Isolation Panel Answer Date Recorded In a typical week, how many times do you talk on the phone with family, friends, or neighbors? Twice a week 01/28/2024 How often do you get together with friends or re latives? Twice a week 01/28/2024 How often do you attend hoahaoism or cheondoism serv ices? Never 01/28/2024 Do you belong to any clubs o r organizations such as hoahaoism groups, unions, fraternal or athletic groups, or school groups? No 01/28/2024 How often do you attend meet ings of the clubs or organizations you belong to? Never 01/28/2024 Are you , , di vorced, , never , or living with a partner? Never 01/28/2024 AUDIT-C Answer Date Recorded Q1: How often do you have a drink containing alc ohol? 2-4 times a month 01/28/2024 Q2: How many drinks containi ng alcohol do you have on a typical day when you are drinking? 5 or 6 01/28/2024 Q3: How often do you have si x or more drinks on one occasion? Monthly 01/28/2024 Overall Financial Resource Strain (CARDIA) Answe r Date Recorded How hard is it for you to pa y for the very basics like food, housing, medical care, and heating? Very hard 01/28/2024 [facility] - Occupational Stress Questionnaire Answer Date Recorded Do you feel stress - tense, restless, nervous, or anxious, or unable to sleep at night because your mind is troubled all the time - these days? Very much 01/28/2024 Exercise Vital Sign Answer Date Recorde d On average, how many days pe r week do you engage in moderate to strenuous exercise (like a brisk walk)? 1 day 01/28/2024 On average, how many minutes do you engage in exercise at this level? 20 min 01/28/2024 Hunger Vital Sign Answer Date Recorded Within the past 12 months, y ou worried that your food would run out before you got the money to buy more. Sometimes true Within the past 12 months, t he food you bought just didn't last and you didn't have money to get more. Sometimes true PRAPARE - Transportation Answer Date Re corded In the past 12 months, has l ack of transportation kept you from medical appointments or from getting medications? No 01/05 In the past 12 months, has l ack of transportation kept you from meetings, work, or from getting things needed for daily living? No 01/28/2024 Housing Stability Vital Sign Answer Eld[place] e Recorded In the last 12 months, was t here a time when you were not able to pay the mortgage or rent on time? No 01/28/2024 In the last 12 months, how many places have you lived? 1 01/28/2024 In the last 12 months, was t here a time when you did not have a steady place to sleep or slept in a nursing home (including now)? No 01/28/2024 Sex and Gender Information Value Date Recorded Sex Assigned at Not on file Legal Sex Male 11:18 PM CDT Gender Identity Not on file Sexual Orientation Not on file Last Filed Vital Signs Vital Sign Reading Time Taken Comments Blood Pressure 129/77 11/27/2024 12:45 AM CDT Pulse 57 11/27/2024 12:59 AM CDT Temperature 36.3 C (97.3 F) 11/27/2024 12:01 AM CDT Respiratory Rate 16 11/27/2024 12:01 AM CDT Oxygen Saturation 96% 11/27/2024 12:59 AM CDT Inhaled Oxygen Concentration - - Weight 90.7 kg (200 lb) 11/27/2024 12:01 AM CDT Height 185.4 cm (6' 1) 11/27/2024 12:01 AM CDT Body Mass Index 26.39 11/27/2024 12:01 AM CDT Plan of Treatment Health Maintenance Due Date Last Done Comments Hepatitis C Virus (HCV) Screening 1991 Human Papillomavirus (HPV) Immunization (1 - 3-dose SCDM series) 2018 Influenza Immunization (#1) 2025 SARS-COV-2 Immunization ( season) 2025 Respiratory Syncytial Virus (RSV) Immunization (Adult) (1 - 1-dose 75+ series) 2066 Hepatitis B Immunization Completed 002, 04/27/2002, 03/10/1997 DTaP/Tdap/Td Immunization Discontinued 2018, 05/04/2007, 03/10/1997, Additional history exists TdaP Immunization Completed 11/29/2018, 05/04/2007 Meningococcal Immunization (ACWY) Aged Out No longer eligible based on patient's age to complete this topic Pneumococcal Immunization Combined Aged Out No longer eligible based on patient's age to complete this topic Rotavirus Immunization Aged Out No lo nger eligible based on patient's age to complete this topic Medical Devices Implanted Type Area Concaver Device Identifier Shelf Expiration Date Model / Serial / Lot [place] Sut 2.9mm Short Pushlock [employer] Eyelet Hndl Table Runner Biocomposite 12.5mm Strl Disp - [id number] Implanted:Qty: 1 on 12/29/2023 by [facility] IMPLANT Right: Shoulder [employer] 02/03/2025 AR-2923BC / AR-2923BC / [id number] [place] Sut 2.9mm Short Pushlock [employer] Eyelet Hndl Table Runner Biocomposite 12.5mm Strl Disp - [id number] Implanted:Qty: 1 on 12/29/2023 by Stefan [facility]rera [facility] IMPL[facility] Right: Shoulder [employer] 02/03/2025 AR-2923BC / AR-2923BC / [id number] [place] Sut 2.9mm Short Pushlock [employer] Eyelet Hndl Table Runner Biocomposite 12.5mm Strl Disp - [id number] Implanted:Qty: 1 on 12/29/2023 by Stefan Carrera MD at [facility] IMPLANT Right: Shoulder [employer] 02/03/2025 AR-2923BC / AR-2923BC / [id number] [place] Sut 2.9mm Short Pushlock [employer] Eyelet Hndl Table Runner [employer]ocomposite 12.5mm Strl Disp - [id number] Implanted:Qty: 1 on 12/29/2023 by Stefan Carrera MD at [facility] IMPLANT Right: Shoulder [employer] 02/03/2025 AR-2923BC / [id number] / [id number] Insurance MEDICAID [place] Care Teams Occupational Health And Safety Manager Relationship Specialty Start Date End Date Be Nunes MD [address] [place] [address] DR PATEL [address] [place] [id number] PCP - General Auto Adjudication Specialist 12/23/23
--- OUTSIDE RECORDS SUMMARY | 2025-06-24 18:46 | XMS_ITS | Clinical Summary ---
Author Organization [facility] Address [address] [place] [address] Care Team Providers Care Feeder Operator Automatic Name Role Phone Reji Peterson MD Unavailable [phone] Lesia Wheat MD Unavailable [phone] Javad Lopez MD Unavailable Be Nunes MD Primary Care Provider [phone] Allergies Active Allergy Reactions Criticality Noted Date Comments Lactose Vomiting Low 05/13/2023 Oxycodone Rash Medium 07/13/2018 Reaction: Rash, Reaction: Rash, Reaction: Rash, Oxycodone-Acetaminophen Rash Medium 08/12/2022 Medications diclofenac (CATAFLAM) 50 mg tablet Take 1 tablet (50 mg total) by mouth 2 (two) times a day 07/02/2023 Active omeprazole (PriLOSEC) 40 mg capsule TAKE 1 CAPSULE(40 MG) BY MOUTH DAILY 90 capsule 1 08/11/2024 Active losartan (COZAAR) 50 mg tablet Take 1 tablet (50 mg total) by mouth daily 90 tablet 1 12/07/2024 Active busPIRone (BUSPAR) 5 mg tablet TAKE 1 TABLET(5 MG) BY MOUTH TWICE DAILY NEEDED FOR ANXIETY 200 tablet 1 02/11/2025 Active Active Problems Problem Noted Date Diagnosed Date Situational anxiety 09/19/2024 Assessment & Plan (11/24/2024 9:29 AM CDT): Chronic problem now better controlled. ANURADHA-7 score previously: 14 Not repeated today Continue Rx Buspar 5mg BID PRN - consider daily SSRI if benefit does not continue. Formerly treated with Valium per patient report however this is from an outside facility provider and can not be verified at this time. Explained to patient that benzodiazepine prescription is not indicated as treatment due to potential for chemical dependence. Emergent behavioral health information given at this time including resources and encouragement to go to 911 with any changes. He denies suicidal or homicidal ideation at this time and confirms excellent family support. Assessment & Plan (09/19/2024 11:09 AM SHOVEL LOGGER): Chronic problem recently exacerbated. Mostly related to health concerns and other situational, social factors. ANURADHA-7 score today: 14 Formerly treated with Valium per patient report however this is from an outside facility provider and can not be verified at this time. Explained to patient that benzodiazepine prescription is not indicated as treatment due to potential for chemical dependence. Trial buspirone 5 mg twice a day as needed, with close follow up in 2-4 weeks. If no improvement, explained to patient that he may benefit from an everyday medications such as SSRI. Emergent behavioral health information given at this time including resources and encouragement to go to 911 with any changes. He denies suicidal or homicidal ideation at this time and confirms excellent family support. Annual physical exam 02/15/2024 Essential hypertension 05/13/2023 Assessment & Plan (12/07/2024 12:08 PM CDT): BP Readings from Last 3 Encounters: 12/07/24 130/80 11/26/24 156/92 11/24/24 102/76 Chronic, stable, and at goal at today's visit Likely situational elevation historically associated with anxiety which is now better controlled. Continue Losartan 25mg daily as Rx. Recommend heart-healthy diet and regular exercise. Had some elevated BP last week, went to ER Better controlled today Does stae he does he have Assessment & Plan (11/24/2024 9:26 AM CDT): BP Readings from Last 3 Encounters: 11/24/24 102/76 09/19/24 116/72 09/09/24 126/80 Chronic, stable, and at goal at today's visit Likely situational elevation historically associated with anxiety which is now better controlled. Continue Losartan 25mg daily as Rx. Recommend heart-healthy diet and regular exercise. Assessment & Plan (09/19/2024 10:01 AM SHOVEL LOGGER): BP Readings from Last 3 Encounters: 09/19/24 116/72 09/09/24 126/80 09/03/24 131/72 Chronic, stable, and at goal at today's visit however reports of higher levels at outside facilities Likely situational elevation associated with anxiety. Continue Losartan 25mg as Rx. Recommend heart-healthy diet and regular exercise. Assessment & Plan (02/15/2024 1:19 PM CDT): BP Readings from Last 3 Encounters: 02/15/24 108/80 09/21/23 160/97 07/21/23 132/82 Vitals BP 108/80 (BP Location: Left arm, Patient Position: Sitting) Pulse 63 Resp 16 Ht 185.4 cm (6' 0.99) Wt 92.5 kg (203 lb 14.4 oz) SpO2 98% BMI 26.91 kg/m Lab Results Component Value Date POTASSIUM 4.2 07/20/2023 At goal at this time - c/w losartan 25 mg every day Assessment & Plan (07/21/2023 1:28 PM SHOVEL LOGGER): BP Readings from Last 3 Encounters: 07/21/23 132/82 07/20/23 122/75 05/13/23 110/90 Vitals BP 132/82 (BP Location: Left arm, Patient Position: Sitting) Pulse 84 Resp 18 Ht 185.4 cm (6' 0.99) Wt 91.9 kg (202 lb 8 oz) SpO2 97% BMI 26.72 kg/m Lab Results Component Value Date POTASSIUM 4.2 07/20/2023 At goal at this time - mulitple elevated readings and strong family hsitory Will start losartan 25 mg every day, have pt rtc in abotu 3 months Continue current regimen Maintain good bp control in setting of AVM Assessment & Plan (05/13/2023 7:51 AM CDT): BP Readings from Last 3 Encounters: 05/13/23 110/90 05/07/23 145/91 04/19/23 149/90 Vitals BP 110/90 (BP Location: Left arm, Patient Position: Sitting) Pulse 80 Resp 16 Ht 185.4 cm (6' 0.99) Wt 90.7 kg (200 lb) SpO2 98% BMI 26.39 kg/m Lab Results Component Value Date POTASSIUM 4.2 04/19/2023 At goal at this time - mulitple elevated readings and strong family hsitory Will start losartan 25 mg every day, have pt rtc in abotu 3 months Continue current regimen Maintain good bp control in setting of AVM Gastroesophageal reflux disease 05/13/2023 Assessment & Plan (11/24/2024 9:27 AM CDT): Avoid common dietary and lifestyle intakes that may exacerbate symptoms including but not limited to alcohol, lactose (known triggers for this patient) caffeine, nicotine, tomatoes, citrus fruit, chocolate, peppermint and spicy foods. Recommend elevating head at night and wait at least 30 minutes to lay down after eating. Continue Rx prilosec 40mg daily Refer to GI due to worsening symptoms reported despite being on the above PPI therapy. AVM (arteriovenous malformation) brain Assessment & Plan (02/15/2024 1:25 PM CDT): Following with neurology, has upcoming apt Pt stopped his lipitor Recommend he discuss with neuro/neurosurg Good BP control Continue lipitor 20 mg every day Asa 81 mg every day normal venous structure extending from the body of the left lateral ventricle anterolaterally through the temporal lobe consistent with developmental venous anomaly and not associated with mass effect, or surrounding hemorrhage. No abnormal feeding arterial tributaries to suggest AVM. Assessment & Plan (05/13/2023 7:42 AM CDT): Following with neurology Referral placed to neurosurg for eval at [facility] Good BP control Continue lipitor 20 mg every day Asa 81 mg every day bnormal venous structure extending from the body of the left lateral ventricle anterolaterally through the temporal lobe consistent with developmental venous anomaly and not associated with mass effect, or surrounding hemorrhage. No abnormal feeding arterial tributaries to suggest AVM. Assessment & Plan (05/07/2023 1:37 PM CDT): - Refer to [facility] neurosurgery -control blood pressure Weakness of right hand 05/07/2023 Assessment & Plan (05/07/2023 1:37 PM CDT): - EMG/NCV right upper extremity Dyslipidemia 04/20/2023 Assessment & Plan (02/15/2024 1:25 PM CDT): Lab Results Component Value Date CHOL 176 04/18/2023 Lab Results Component Value Date HDL 37 (L) 04/18/2023 Lab Results Component Value Date LDLCALC 118 04/18/2023 Lab Results Component Value Date TRIG 104 04/18/2023 No results found for: POCCHDLR No results found for: POCNONHDL No results found for: POCCHLPL Repeat lipid panel now Stopped lipitor Will recheck labs Assessment & Plan (05/07/2023 1:37 PM CDT): -Continue aspirin 81mg daily -Continue atorvastatin 40mg daily Abnormal head CT 04/18/2023 Ataxia right leg 04/18/2023 Right sided weakness 04/18/2023 Other chronic pain 06/23/2022 Piriformis syndrome of right side 03/08/2021 Muscle spasm of right lower extremity 03/08/2021 Acute appendicitis 12/25/2015 Overview (12/10/2016): Acute appendicitis Resolved Problems Problem Noted Date Diagnosed Date Resolved Date Episodic cluster headache, not intractable 05/07/2023 05/07/2023 Chest pain in adult 04/18/2023 02/15/20 24 SOB (shortness of breath) 04/18/2023 Dizziness 04/17/2023 02/15/2024 Elevated BP without diagnosis of hypertension 06/23/20 22 05/13/2023 Mass of joint of right knee 04/13/2022 05/13/2023 Overview (04/13/2022): Added automatically from request for surgery [id number] Immunizations Immunization Administration Dates Next Due DTP 03/10/1997, 4,02/19/1992,1991,0 1991 Hep A, Pediatric 05/04/2007 Hep B, Adolescent or Pediatric 06/26/2002,2001,03/10/1997 HiB 09/18/1992,02/19/1992,1991 ,1991 IPV 03/10/1997,02/19/1992,1991 ,1991 Influenza, Unspecified 12/04/2024(Deferr ed: Patient Refused),09/19/2024(Deferred: Patient Refused),12/03/2023(Deferred: Patient Refused),07/21/2023(Deferred: Patient Refused),05/13/2023(Deferred: Patient Refused),04/06/2023(Deferred: Patient Refused),07/21/2022(Deferred: Patient Refused) MMR 03/10/1997,09/18/1992 Meningococcal C Conjugate 05/04/2007 Tdap 11/29/2018,05/04/2007 Surgical History Surgery Date Site/Laterality Comments APPENDECTOMY unknown date ANAL FISSURECTOMY unknown KNEE SURGERY 04/28/2022 Right EPIDURAL BLOCK INJECTION Medical History Medical History Date Comments Herniated cervical disc Herniated lumbar intervertebral disc 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 Hyperlipidemia AVM (arteriovenous malformation) brain Family History Medical History Relation Name Comments Gout Father Heart attack Father Hypertension Father Hypertension; Diabetes Mother Diabetes Sister Relation Name Status Comments Father Mother Sister Social History Tobacco Use Types Packs/Day Years Used Date Smoking Tobacco: Former Cigarettes 2 - 2014 Smokeless Tobacco: Never Tobacco Cessation:Counseling Given: Not Answered Alcohol Use Standard Drinks/Week Comments Yes 0 (1 standard drink = 0.6 oz pur e alcohol) every other week AUDIT-C Answer Date Recorded Q1: How often do you have a drink containing alc ohol? 2-3 times a week 11/24/2024 Q2: How many drinks containi ng alcohol do you have on a typical day when you are drinking? 5 or 6 11/24/2024 Q3: How often do you have si x or more drinks on one occasion? Less than monthly 11/24/2024 PHQ-2 Answer Date Recorded PHQ-2 Total Score (If total score is 3 or more points, staff should administer the PHQ-9) 0 12/07/2024 Hunger Vital Sign Answer Date Recorded Within the past 12 months, y ou worried that your food would run out before you got the money to buy more. Never true 02/29/20 24 Within the past 12 months, t he food you bought just didn't last and you didn't have money to get more. Never true 02/29/2024 Personal Safety Answer Date Recorded Have you ever been in or are you currently in a harmful physical or emotional relationship or is someone making you feel afraid or unsafe? Denies 11/26/2024 Sex and Gender Information Value Date Recorded Sex Assigned at Not on file Legal Sex Male 9:49 AM SHOVEL LOGGER Gender Identity Not on file Sexual Orientation Not on file Obstetrics History Last Filed Vital Signs Vital Sign Reading Time Taken Comments Blood Pressure 130/80 12/07/2024 11:54 AM CDT Pulse 74 12/07/2024 11:54 AM CDT Temperature 36.4 C (97.6 F) 11/26/2024 10:56 PM CDT Respiratory Rate 16 12/07/2024 11:54 AM CDT Oxygen Saturation 99% 12/07/2024 11:54 AM CDT Inhaled Oxygen Concentration - - Weight 90.8 kg (200 lb 3.2 oz) 12/07/2024 11:54 AM CDT Height 185.4 cm (6' 0.99) 12/07/2024 11:54 AM C DT Body Mass Index 26.42 12/07/2024 11:54 AM CDT Plan of Treatment Health Maintenance Due Date Last Done Comments Hepatitis C Screening 1991 Varicella Vaccines (1 of 2 - 13+ 2-dose series) 2004 HPV Vaccines (1 - 3-dose SCDM series) 2018 Regular Well Visit/Exam 18-64 02/14/2025 02/15/2024 Influenza Vaccine (#1) 2025 Depression Screening 12/07/2025 12/07/2024, 09/19/2024, 02/15/2024, Additional history exists DTaP/Tdap/Td Vaccine (8 - Td or Tdap) 11/29/2028 11/29/2018, 05/04/2007, 03/10/1997, Additional history exists Hepatitis B Screening Completed 06/26/2002 , 04/27/2002, 03/10/1997 Pneumococcal vaccine <65 Aged Out No longer eligible based on patient's age to complete this topic Insurance IDPA [facility] Advance Directives For more information, please contact: [phone] * Full Code (Latest Code Status on File) Date Activated Date Inactivated Comments 04/17/2023 9:45 PM 04/19/2023 10:19 PM Care Teams Feeder Operator Automatic Relationship Specialty Start Date End Date Be Nunes MD [address] [facility] [address] [address] [place] [address] PCP - General Family Medicine 05/13/23 Reji Peterson MD [address] [facility] [address] [address] [place] [address] Consulting Physician Neurology 04/19/23 [place] [address] [place] [address] Consulting Physician Otolaryngology 04/19/23 Javad Lopez MD [address] [place] [address] Consulting Physician Cardiology 04/19/23
--- OUTSIDE RECORDS SUMMARY | 2025-06-24 18:46 | XMS_ITS | Encounter Summary ---
Author Organization [facility] Address [address] [facility] 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 Name Role Phone Provider, Unknown Primary Care Provider Be Nathan MD Primary Care Provider [phone] Reason for Referral * Radiology Services (Routine) - Closed Specialty Diagnoses / Procedures Referred By Keli david Referred To Contact Radiology Diagnoses Right shoulder pain Carpal tunnel syndrome Pre-op testing Procedures XR CHEST 2 VIEWS Stefan Carrera MD Phone: tel: fax: Referral ID Status Reason Start Date Expiration Date Visits Re quested Visits Authorized [id number] Closed 12/17/2023 1 1 * Radiology Services (Routine) - Closed Specialty Diagnoses / Procedures Referred By Keli david Referred To Contact Radiology Diagnoses Right shoulder pain Carpal tunnel syndrome Pre-op testing Procedures EKG 12 LEAD Stefan Carrera MD Phone: tel: fax: Referral ID Status Reason Start Date Expiration Date Visits Re quested Visits Authorized [id number] Closed 12/17/2023 1 1 Encounter Details Date Type Department Care Team (Latest Contact Info) Description 12/17/2023 Transcribe Orders [facility] Preop/Pacu II [address] [place] [address] Stefan Carrera MD [address] [place] [address] Right shoulder pain (Primary Dx); Carpal tunnel syndrome; Pre-op testing Social History Tobacco Use Types Packs/Day Years Used Date Smoking Tobacco: Former Cigarettes 0.3 6 2 007 - 2012 Smokeless Tobacco: Never Alcohol Use Standard Drinks/Week Comments Not Currently 0 (1 standard drink = 0.6 oz pure alcohol) TEQUILA & BEER ON WEEKENDS ([place]) AUDIT-C Answer Date Recorded Frequency of Alcohol Consumption Never 04/01/2019 Average Number of Drinks Not on file 019 Frequency of Binge Drinking Not on file 03/07 Sex and Gender Information Value Date Recorded Sex Assigned at Not on file Legal Sex Male 11:18 PM CDT Gender Identity Not on file Sexual Orientation Not on file documented as of this encounter Plan of Treatment Not on file documented as of this encounter Results * XR CHEST 2 VIEWS (12/23/2023 12:07 PM CDT) Anatomical Region Laterality Modality Chest N/A Digital Radiogra phy 12/24/2023 8:21 AM CDT Impressions 12/24/2023 8:24 AM CDT IMPRESSION: No acute cardiopulmonary abnormality. Narrative 12/24/2023 8:24 AM CDT EXAM DESCRIPTION: XR CHEST 2 VIEWS REASON FOR STUDY: Preop for rotator cuff surgery next . No chest complaints. No surgery. H/o HTN, former smoker TECHNIQUE: 2 radiographic view(s) of the chest. COMPARISON: 09/10/2022 FINDINGS: Lungs are well inflated. No consolidation pulmonary edema, pleural effusion or pneumothorax. Heart size and mediastinal contours are normal. THIS IS AN ELECTRONICALLY VERIFIED FINAL REPORT 12/24/2023 8:21 AM - Electronically signed by Bautista Alicia M.D. AG: SUSI Report ID: [id number] Reading Location: [id number] Procedure Note Bautista Alicia MD - 12/24/2023 EXAM DESCRIPTION: XR CHEST 2 VIEWS REASON FOR STUDY: Preop for rotator cuff surgery next . No chest complaints. No surgery. H/o HTN, former smoker TECHNIQUE: 2 radiographic view(s) of the chest. COMPARISON: 09/10/2022 FINDINGS: Lungs are well inflated. No consolidation pulmonary edema, pleural effusion or pneumothorax. Heart size and mediastinal contours are normal. THIS IS AN ELECTRONICALLY VERIFIED FINAL REPORT 12/24/2023 8:21 AM - Electronically signed by Bautista Alicia M.D. AG: AG Report ID: [id number] Reading Location: [id number] IMPRESSION: No acute cardiopulmonary abnormality. Stefan Carrera MD IMG DIAGNOSTIC ORDERABLES Final Result * EKG 12 LEAD (12/23/2023 11:53 AM CDT) Ventricular Rate 57 BPM EXTERNAL EKG Atrial Rate 57 BPM EXTERNAL EKG P-R Interval 150 ms EXTERNAL EKG QRS Duration 114 ms EXTERNAL EKG Q-T Duration 388 ms EXTERNAL EKG QTC CALCULATION 377 ms EXTERNAL EKG P Primghar -24 degrees EXTERNAL EKG R [place] 69 degrees EXTERNAL EKG T [place]imghar 34 degrees EXTERNAL EKG 12/23/2023 11:5 3 AM CDT Impressions EXTERNAL EKG - 12/23/2023 11:09 PM CDT Sinus bradycardia Otherwise normal ECG When compared with ECG of 10-SEP-2022 12:07, No significant change was found Confirmed by Alberto House ([id number]) on 12/23/2023 11:09:17 PM Narrative Procedure Note Alberto House MD PhD - 12/23/2023 IMPRESSION: Sinus bradycardia Otherwise normal ECG When compared with ECG of 10-SEP-2022 12:07, No significant change was found Confirmed by Alberto House ([id number]) on 12/23/2023 11:09:17 PM us Stefan Carrera MD IMG ECG ORDERABLES Final Result EXTERNAL EKG * CMP (COMPREHENSIVE METABOLIC PANEL) (12/23/2023 11:47 AM CDT) SODIUM 139 136 - 145 mmol/L 12/23/2023 12:36 PM CDT [facility] POTASSIUM 4.1 3.5 - 5.1 mmol/L 12/23/2023 12:36 PM CDT [facility] CHLORIDE 105 98 - 107 mmol/L 12/23/2023 12:36 PM CDT [facility] CO2, VENOUS 25 22 - 30 mmol/L 12/23/2023 12:36 PM CDT [facility] ANION GAP 13.1 <18.0 mmol/L 12/23/2023 12:36 PM CDT [facility] GLUCOSE 90 70 - 99 mg/dL 12/23/2023 12:36 PM CDT [facility] BUN 16 9 - 21 mg/dL 12/23/2023 12:36 PM CDT [facility] CREATININE, BLOOD 0.96 0.70 - 1.30 mg/dL 12/23/2023 12:36 PM CDT [facility] BUN/CREATININE RATIO 17 12 - 20 ratio 12/23/2023 12:36 PM CDT [facility] TOTAL PROTEIN 7.4 6.3 - 8.2 g/dL 12/23/2023 12:36 PM CDT [facility] ALBUMIN 4.6 3.5 - 5.0 g/dL 12/23/2023 12:36 PM CDT [facility] A/G RATIO 1.6 1.0 - 2.2 12/23/2023 12:36 PM CDT [facility] CALCIUM 9.3 8.7 - 10.5 mg/dL 12/23/2023 12:36 PM CDT [facility] T BILI 0.6 0.2 - 1.2 mg/dL 12/23/2023 12:36 PM CDT [facility] SGOT (AST) 17 5 - 34 U/L 12/23/2023 12:36 PM CDT [facility] SGPT (ALT) 19 0 - 55 U/L 12/23/2023 12:36 PM CDT [facility] ALKALINE PHOSPHATASE 58 40 - 150 U/L 12/23/2023 12:36 PM CDT [facility] IS THE PATIENT REQUIRED TO BE FASTING? No 12/23/2023 12:36 PM CDT [facility] GFR, ESTIMATED >60 >=60 12/23/2023 12:36 PM CDT [facility] Comment: Creatinine Clearance is the preferred criteria for selecting drug dose adjustments in renally impaired patients. The GFR is provided as additional pertinent clinical information. GFR is reported in mL/min/1.73 sq m. Calculation based on the Chronic Kidney Disease Epidemiology Collaboration (CKD- EPI) equation refit without adjustment for race. GFR, EST. >60 >=60 024 12:36 PM CDT [facility] GFR, EST. NONAFRICAN >60 >=60 12/23/2023 12:36 PM CDT [facility] Blood Venipuncture / Unknown 12/23/2023 11:47 AM CDT 12/23/2023 12:05 PM CDT us Stefan Carrera MD CHEMISTRY ORDERABLES Final Resul t [facility] [address] [place] [address] documented in this encounter Visit Diagnoses Diagnosis Right shoulder pain- Primary Pain in joint, shoulder region Carpal tunnel syndrome Pre-op testing Preoperative examination, unspecified Right shoulder pain Pain in joint, shoulder region Carpal tunnel syndrome Pre-op testing Preoperative examination, unspecified Right shoulder pain Pain in joint, shoulder region Carpal tunnel syndrome Pre-op testing Preoperative examination, unspecified documented in this encounter Care Teams Wind Farm Designer Relationship Specialty Start Date End Date Provider, Unknown UNKNOWN PCP - General 08/14/22 12/22/23 Be Nunes MD [address] [place] [id number] PCP - General Frog Shaker 12/23/23 documented as of this encounter
--- OUTSIDE RECORDS SUMMARY | 2025-06-24 18:46 | XMS_ITS | Encounter Summary ---
Author Organization [facility] Address [address] [place] [address] Phone Care Team Providers Care School Nurse Name Role Phone Unknown, Notinfile Primary Care Provider Unavail able No, Physician Primary Care Provider [phone] Reji Peterson MD Unavailable [phone] Lesia Wheat MD Unavailable [phone] Javad Lopez MD Unavailable Be Nunes MD Primary Care Provider [phone] Encounter Details Date Type Department Care Team (Late st Contact Info) Description 07/20/2022 Documentation [facility] Medicine Orthopaedic Surgery [address] [facility] [address] [place] [address] [place] [address] [place] [address] Social History Tobacco Use Types Packs/Day Years Used Date Smoking Tobacco: Former Cigarettes 2 - 2014 Smokeless Tobacco: Never Alcohol Use Standard Drinks/Week Comments Yes 0 (1 standard drink = 0.6 oz pur e alcohol) every other week AUDIT-C Answer Date Recorded Q1: How often do you have a drink containing alc ohol? 2-4 times a month 04/13/2022 Q2: How many drinks containi ng alcohol do you have on a typical day when you are drinking? 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 Gender Identity Not on file Sexual Orientation Not on file documented as of this encounter Plan of Treatment Not on file documented as of this encounter Visit Diagnoses Not on filedocumented in this encounter Additional Health Concerns Infection Onset Date Last Indicated Resolved Time COVID: Suspected 09/02/2024 09/02/2024 09/02/2024 11:09 PM AUTOMATION QTP TESTER documented as of this encounter Care Teams School Nurse Relationship Specialty Start Date End Date Unknown, Notinfile PCP - General 06/21/21 12/03/22 No, Physician PCP - General 12/04/22 05/12/23 Be Nunes MD [address] [facility] [address] [place] [address] PCP - General Family Medicine 05/13/23 Reji Peterson MD [address] [facility] [address] [place] [address] Consulting Physician Neurology 04/19/23 [place] [address] [facility] [address] [place] [address] Consulting Physician Otolaryngology 04/19/23 Javad Lopez MD [address] [facility] [address] [place] [address] Consulting Physician Cardiology 04/19/23 documented as of this encounter
--- NOTE | 2025-06-24 18:47 | ED.DENTAL ---
HPI - Dental/Oral General Chief complaint: Dental/Oral Stated complaint: tooth pain Time Seen by Provider: 06/24/25 18:49 Source: patient, RN notes reviewed and old records reviewed Mode of arrival: ambulatory Limitations: no limitations History of Present Illness HPI Narrative: 35-year-old male presents to the [facility] with complaints of right upper posterior dental pain. Patient states that he was seen at [facility] in cool last be, was told that he needed a root canal. Is waiting to be seen at [facility] for a root canal. Reports taking Tylenol Motrin. Symptoms for over 2 months. Treatment prior to arrival: topical analgesic and oral analgesic Related Data Home Medications ?Medication ?Instructions ?Recorded ?Confirmed ?Last Taken ?Type omeprazole 40 mg capsule,delayed 40 mg PO DAILY 05/21/23 09/04/24 Unknown History release losartan 25 mg tablet 25 mg PO DAILY 08/11/23 09/04/24 Unknown History diclofenac potassium 50 mg tablet mg 06/24/25 Unknown History Allergies Allergy/AdvReac Type Severity Reaction Status Date / Time hydrocodone Allergy Unknown Unknown Verified 06/24/25 18:53 oxycodone (From Percocet) AdvReac Mild Rash Verified 06/24/25 18:53 Review of Systems Review of Systems: All systems reviewed & are unremarkable except as noted in HPI and below Constitutional: Constitutional: Reports no additional constitutional complaints ENT: Reports as per HPI and Reports dental pain Cardiovascular: Cardiovascular: Reports no additional cardiovascular complaints, Denies chest pain and Denies dyspnea Respiratory: Respiratory: Reports no additional respiratory complaints, Denies chest congestion, Denies cough and Denies dyspnea Musculoskeletal: Musculoskeletal: Reports no additional musculoskeletal complaints Integumentary/Breasts: Skin/Breast: Reports system reviewed and no additional complaints, except as docu PMFSH Past Medical History Medical History Chronic neck and back pain Hypertension AVM (arteriovenous malformation) Back pain Surgical History Surgical History H/O rectal sphincterotomy 12/29/21 History of appendectomy Family History Family History Father Hypertension Mother Diabetes mellitus Heart disease Social History Social History Smoking status: Former smoker Tobacco type: cigarettes Smoking end date: 12/23/14 Alcohol intake: former Substance use: current Substance use type: marijuana Other substance usage details: DAILY Living arrangements: alone Occupation/Education: occupation 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 There is no relevant family history pertinent to the patient complaint. Exam Const: General: cooperative, healthy appearing, comfortable, no acute distress, well developed, alert and well nourished Nutritional Appearance: well nourished Orientation/consciousness: patient oriented x3 Limitations: no limitations HENMT: Head: normal to inspection Ears: hearing grossly normal bilaterally, external ears normal, TM's normal bilaterally, EAC's normal, mastoids normal and no periauricular adenopathy Mouth: Yes Normal oral and palatal mucosa present, Yes lip normal, Yes tongue normal and Yes moist mucous membranes abnormal Teeth and gingiva: gingiva abnormal tender and receding; not erythematous, multiple restorations and poor dentition Throat: posterior oropharynx normal, uvula midline and no uvular edema Eyes: General: appearance normal, both eyes and all related structures Alignment and Position: alignment normal Neck: Neck: normal visual inspection, full ROM, no lymphadenopathy and no meningeal signs Chest: Chest palpation & inspection: normal inspection of the chest Resp: Effort & Inspection: normal respiratory effort and able to speak in complete sentences Auscultation: clear to auscultation bilaterally, no crackles, no rales, no rhonchi and no wheezes Cardio: Rate: regular rate Skin: General skin exam: normal color and no rashes or lesions noted Neuro: General: patient oriented x3, gait normal, moves all extremities and no meningeal signs Cognition (Neuro): normal cognition Speech: normal speech Gait exam (Neuro): Normal gait present Extrem: General: normal to inspection, full ROM, capillary refill normal and normal gait Psych: Appearance: grossly normal and well kempt Mental Status: mental status grossly normal Speech and movement: Normal speech and movement present and Clear speech present Affect: normal affect Attitude: cooperative Course Course Level of Care: Express Care Visit Vital Signs Vital signs: Vital Signs Temperature 98.1 F 06/24/25 18:46 Pulse Rate 65 06/24/25 18:46 Respiratory Rate 20 06/24/25 18:46 Blood Pressure 143/101 H 06/24/25 18:46 Pulse Oximetry 100 06/24/25 18:46 Oxygen Delivery Room Air 06/24/25 18:46 Temperature 98.1 F 06/24/25 18:46 Pulse Rate 65 06/24/25 18:46 Respiratory Rate 20 06/24/25 18:46 Blood Pressure 143/101 H 06/24/25 18:46 Pulse Oximetry 100 06/24/25 18:46 Oxygen Delivery Room Air 06/24/25 18:46 Reviewed MDM - Dental/Oral MDM Narrative Medical decision making narrative: Patient sitting in exam room. Patient is nontoxic, vitals are stable. Except blood pressure elevated. Reports that he normally takes blood pressure medication. Patient presents 2 months of right upper dental pain. Has seen a dental provider, was told that he needs a root canal. States that another clinic told him it would be a 4 month wait to get the root canal. No erythema, swelling noted to the gingiva, receding gingiva, poor dentition. List of dental providers given to patient Discharge instructions reviewed with patient, as well as provided in writing per nursing staff. The instructions also include specific and strict return/GO TO THE ER as well as f/u information. All questions have been answered, and the patient deny any further questions with discharge and discharge plan. Some parts of this dictation were generated by voice recognition software and may contain typographical and/or grammatical inaccuracies. Differential Diagnosis Differential diagnosis: Likely gingival abscess, dental caries, toothache, dental abscess and fracture of tooth Critical Care Time Critical Care Time Critical Care Time: No Discharge Plan Discharge Clinical Impression: Gingivitis, Chronic dental pain Patient Disposition: Home Condition: Stable Instructions: Antibiotic Form, Toothache (ED), Mouth Care (ED) Additional Instructions: Today your blood pressure was 143/101. Please follow-up with your primary care provider within 2 weeks to have this rechecked Untreated or undertreated blood pressure can lead to more serous health problems Finish the entire course of antibiotics Pressure teeth in use a good mouthwash twice a day. Apply ice to face to help with pain. Take Tylenol alternating with Motrin as needed for pain. You can alternate every 4 hours You need to follow-up with a dental provider as soon as possible for further evaluation and treatment. A list of dental providers has been given to you Follow up with a Primary Care Provider (PCP) about medical needs. A PCP can help keep you healthy by preventive medicine and screening. Go to the ER for New or worsening symptoms. Patient Language: Eritrean Prescriptions: New penicillin V potassium 500 mg tablet 500 mg PO TID 7 Days Qty: 21 0RF No Action omeprazole 40 mg capsule,delayed release(DR/EC) 40 mg PO DAILY losartan 25 mg tablet 25 mg PO DAILY diclofenac potassium 50 mg tablet Follow-up/Referrals: Des,MD Be [Primary Care Provider, Unknown] - 2 Weeks Stand Alone Forms: Work/School Release IP Time of Disposition: 18:59
== END 2025-06-24 19:03 | disposition home or self-care (01) ==
PROVIDERS: Emergency Provider Nurse Practitioner; PCP Family Medicine
DX: K05.10 Chronic gingivitis, plaque induced (principal); K08.89 Other specified disorders of teeth and supporting structures; I10 Essential (primary) hypertension; Q27.30 Arteriovenous malformation, site unspecified; Z87.891 Personal history of nicotine dependence
CPT/HCPCS: 99213; G0463